=== PATIENT | female | born 1980 | race Caucasian/White ===

== ENCOUNTER 2020-12-03 01:11 | Day surgery (SDC) | payer BC, SELFPAY ==
[2020-11-21 13:57] VITALS: BMI 30.4
--- NOTE | 2020-12-03 08:13 | WPDANESEPPF ---
Anes - Initial Pre Proc Eval Procedure: Operation Date: 12/03/20 11:00 Proposed Procedures p Esophagogastroduodenoscopy & Colonoscopy - Mohsen Overton MD Date/Time: 12/03/20 08:13 Surgeon: Mohsen Overton MD Pre Op Diagnosis: nausea, vomiting, diarrhea Patient Data Age: 40 Gender: F Height: 1.63 m Weight: 80.29 kg Allergies Allergy/AdvReac Type Severity Reaction Status Date / Time No Known Allergies Allergy Verified 12/03/20 10:02 Home Medications Medication Instructions Recorded Confirmed Type aripiprazole 10 mg tablet 10 mg PO DAILY 09/11/20 11/21/20 History lamotrigine 25 mg tablet 25 mg PO DAILY tablet 09/11/20 11/21/20 History ondansetron 4 mg disintegrating 4 mg PO Q8H PRN #30 tablet 09/11/20 11/21/20 Rx tablet trazodone 50 mg tablet 50 mg PO QHS PRN 09/11/20 11/21/20 History calcium carbonate [Tums] 200 mg PO PRN 11/21/20 11/21/20 History Patient hx anesthesia problems: none Family hx anesthesia problems: none PMFSH Past Medical History Medical History Anxiety Anxiety and depression follows with psych Depression History of cervical fracture (~04/18/14) Surgical History Surgical History History of unilateral fallopian tube excision (~2008) Hx of cholecystectomy (~2005) Family History Family History Mother Family history of alcoholism Depression Social History Social History Smoking status: Former smoker Additional smoking assessment comments: quit 2 years Alcohol intake: current Drinks per week: 3 Substance use type: former substance user and methamphetamine Living arrangements: with family Spiritual care concerns: No Anes - Eval Final PreProcedure Day of Procedure 12/03/20 08:13 Patient weight: obese Heart: regular rate and rhythm Lungs: clear to auscultation and normal air movement Airway: Mallampati scale class II Neurological: alert and oriented Last oral intake: >/= 8 hours ASA classification: II Emergent: no Anesthetic plan: proceed Anesthesia type and monitoring: general GIVS and standard monitoring Informed Consent: The patient's anesthetic plan and its attendant risks and benefits were discussed with the patient/family/POA. Questions were solicited and answers provided to the satisfaction of the patient/family/POA.
[2020-12-03 10:04] VITALS: BP 119/93; PULSE 88; RESP 18; TEMP 36.2; O2SAT 99; BMI 28.9
[2020-12-03] MEDS: LACTATED RINGERS 1,000 ML 150 ML IV CONT (10:26)
--- NOTE | 2020-12-03 10:46 | PM.HPGS ---
History of Present Illness History of Present Illness Consent: Risks, benefits, and alternatives have been discussed and questions answered. Patient agrees to proceed with procedure. Chief complaint: nausea, vomiting, diarrhea Narrative: Ramya Valdes is a 40 year old female who has been having diarrhea since July of this year. It seemed to begin acutely accompanied by abdominal pain and vomiting. There is a family history of Crohn's disease and serology revealed an elevation of an antibody suggesting Crohn's disease. Review of Systems Review of Systems: All systems reviewed & are unremarkable except as noted in HPI and below PMFSH Past Medical History Medical History Anxiety Anxiety and depression follows with psych Depression History of cervical fracture (~04/18/14) Surgical History Surgical History History of unilateral fallopian tube excision (~2008) Hx of cholecystectomy (~2005) Family History Family History Mother Family history of alcoholism Depression Social History Social History Smoking status: Former smoker Additional smoking assessment comments: quit 2 years Alcohol intake: current Drinks per week: 3 Substance use type: former substance user and methamphetamine Living arrangements: with family Spiritual care concerns: No Meds Home Medications and Allergies Home Medications Medication Instructions Recorded Confirmed Type aripiprazole 10 mg tablet 10 mg PO DAILY 09/11/20 12/03/20 History lamotrigine 25 mg tablet 25 mg PO DAILY tablet 09/11/20 11/21/20 History ondansetron 4 mg disintegrating 4 mg PO Q8H PRN #30 tablet 09/11/20 11/21/20 Rx tablet trazodone 50 mg tablet 50 mg PO QHS PRN 09/11/20 11/21/20 History calcium carbonate [Tums] 200 mg PO PRN 11/21/20 11/21/20 History Allergies Allergy/AdvReac Type Severity Reaction Status Date / Time No Known Allergies Allergy Verified 12/03/20 10:02 Vital Signs Vital Signs - 24 hr 12/03/20 10:04 Temperature 36.2 C L Pulse Rate 88 Respiratory Rate 18 Blood Pressure 119/93 H Pulse Oximetry 99 Exam Resp: Auscultation: clear to auscultation bilaterally Cardio: Rate: regular rate Rhythm: regular rhythm GI: GI Palp: Yes Soft to palpation and No Tenderness to palpation present (GI) Assessment and Plan Assessment and plan (1) Chronic diarrhea: Code(s): K52.9 - Noninfective gastroenteritis and colitis, unspecified Status: Acute Assessment and Plan: EGD with possible biopsy or dilatation or cautery.Colonoscopy with possible biopsy or polypectomy or cautery or injection of substances.
[2020-12-03 11:28] VITALS: BP 114/83; PULSE 81; RESP 18; O2SAT 99
[2020-12-03 11:38] VITALS: BP 106/79; PULSE 78; RESP 18; O2SAT 99
[2020-12-03 11:48] VITALS: BP 121/89; PULSE 78; RESP 18; O2SAT 99
== END 2020-12-03 12:00 | disposition home or self-care (01) ==
PROVIDERS: PCP Nurse Practitioner Family; Visit Provider Internal Medicine Gastroenterology
PROC: 0DJ08ZZ Inspection of Upper Intestinal Tract, Via Natural or Artificial Opening Endoscopic (ICD-10-PCS; CPT 43235; principal; 2020-12-03 11:00)
DX: Z12.11 Encounter for screening for malignant neoplasm of colon (principal); K62.89 Other specified diseases of anus and rectum; K57.30 Diverticulosis of large intestine without perforation or abscess without bleeding; K59.1 Functional diarrhea; K21.00 Gastro-esophageal reflux disease with esophagitis, without bleeding; R11.2 Nausea with vomiting, unspecified; F41.8 Other specified anxiety disorders; Z87.891 Personal history of nicotine dependence; E66.9 Obesity, unspecified; Z68.28 Body mass index [BMI] 28.0-28.9, adult
CPT/HCPCS: 45380; 43239; 87081; 88305; J2704; J7120

== ENCOUNTER → 2021-03-12 07:58 | Outpatient (CLI) | payer BC, SELFPAY ==
[2021-03-12 20:27] LABS: SARS-CoV-2 RNA PCR Negative
== END ==
PROVIDERS: PCP Nurse Practitioner Family; Visit Provider Nurse Practitioner
DX: R68.89 Other general symptoms and signs (principal); Z20.822 Contact with and (suspected) exposure to COVID-19
CPT/HCPCS: C9803; U0003; U0005

== ENCOUNTER 2022-03-15 06:11 | Emergency (ER) | payer BC, SELFPAY ==
[2022-03-15] VITALS (24 sets, daily range): BP systolic 104–131; BP diastolic 62–88; PULSE 99; RESP 18; TEMP 37.2; O2SAT 94–100
[2022-03-15 07:24] LABS: Influenza A QL RT-PCR Positive (Negative); Influenza B QL RT-PCR Negative (Negative); SARS-CoV-2 RNA PCR Negative
--- NOTE | 2022-03-15 07:42 | ED.URI ---
HPI - URI/Sore Throat General Chief Complaint: Upper Respiratory Infection Stated Complaint: Cough, headache, fever, body aches Time Seen by Provider: 03/15/22 06:23 Source: patient and family Mode of arrival: ambulatory Limitations: no limitations History of Present Illness HPI Narrative: This is 41 year old female who presents for evaluation of URI symptoms. at bedside assisting with history. He states patient's symptoms started yesterday with headache, congestion, cough, fever and body aches. PAtient agrees with onset time and symptoms. SHe reports her headache is located mostly in bilateral temples and she describes her headache as throbbing. She denies associated nausea, vomiting, blurred vision. She denies chest pain, abdominal pain or diarrhea. She has been taking sudafed, ibuprofen and tylenol. She last took medication around 4 am. She states her headache has improved to 5/10 currently since taking the medication. states his kids were ill this past week but they were negative for strep and flu. Related Data Home Medications Medication Instructions Recorded Confirmed trazodone 50 mg tablet 50 mg PO QHS PRN Insomnia 09/11/20 08/16/21 calcium carbonate 200 mg calcium 200 mg PO PRN 11/21/20 08/16/21 (500 mg) chewable tablet (Tums) Allergies Allergy/AdvReac Type Severity Reaction Status Date / Time No Known Allergies Allergy Verified 01/24/22 13:36 Review of Systems Review of Systems: All systems reviewed & are unremarkable except as noted in HPI and below Constitutional: Constitutional: Reports chills, Reports fatigue and Reports fever(s) Eyes: Eyes: Denies change in vision and Denies photophobia ENT: Reports nasal congestion and Denies sore throat Cardiovascular: Cardiovascular: Denies chest pain and Denies radiating jaw, neck or arm pain Respiratory: Respiratory: Denies chest congestion, Reports cough and Denies dyspnea Gastrointestinal: Gastrointestinal: Denies abdominal pain, Denies diarrhea, Denies nausea and Denies vomiting Neurologic: Denies syncope, Reports headache(s), Denies focal weakness and Denies numbness PMFSH Past Medical History Medical History Anxiety Anxiety and depression follows with psych Depression Family history of breast cancer mother's sister History of cervical fracture (~04/18/14) Tobacco use Surgical History Surgical History History of unilateral fallopian tube excision (~2008) Hx of cholecystectomy (~2005) Family History Family History Mother Family history of alcoholism Depression Social History Social History Smoking status: Current every day smoker Additional smoking assessment comments: quit 2 years Alcohol intake: current Drinks per week: 3 Substance use type: former substance user and methamphetamine Spiritual care concerns: No Exam Const: General: no acute distress, alert and ill appearing Nutritional Appearance: well nourished Orientation/consciousness: patient oriented x3 HENMT: Head: normal to inspection Ears: external ears normal and TM's normal bilaterally Face and sinus: normal facial exam Mouth: Yes Normal oral and palatal mucosa present Throat: posterior oropharynx normal and uvula midline Eyes: Pupils: Equal, round and reactive pupils present EOM: EOMs intact bilaterally Neck: Neck: normal visual inspection and no lymphadenopathy Chest: Chest palpation & inspection: normal inspection of the chest Resp: Effort & Inspection: normal respiratory effort Auscultation: clear to auscultation bilaterally Cardio: Rate: regular rate Rhythm: regular rhythm Heart sounds: no murmurs GI: GI Palp: Yes Soft to palpation, Yes Tenderness to palpation present (GI) and No Guarding due to palpation present (GI) Auscultation: normal bow
[2022-03-15] MEDS: LACTATED RINGERS 1,000 ML 999 ML IV CONT (07:56)
[2022-03-15] MEDS: OSELTAMIVIR PHOSPHATE 75 MG CAPSULE PO (07:57)
[2022-03-15 08:01] LABS: Appearance Urine Clear (Clear); Bilirubin Urine Negative (Negative); Blood Urine Trace-lysed (Negative); Color Urine Yellow (Yellow); Glucose Urine UA Negative (Negative); Ketones Urine Trace mg/dL (Negative); Leukocyte Esterase Ur Negative LEU/UL (Negative); Nitrate Urine Negative (Negative); Protein Urine Negative (Negative); Specific Grav Ur 1.015 (1.001-1.035); Urobilinogen Urine 0.2 mg/dL (<2.0); pH Urine 5.5 (5.0-9.0)
[2022-03-15 08:08] LABS: Mucus Urine Rare /lpf; RBC Urine 0-2 /hpf (0-2); Squamous Epithelial Cell Urine Rare /hpf (Few); WBC Urine 0-3 /hpf
[2022-03-15 08:21] LABS: Add Urine Microscopic? YES
== END 2022-03-15 09:02 | disposition home or self-care (01) ==
PROVIDERS: Emergency Medicine; Emergency Provider General Practice; PCP Nurse Practitioner Family
DX: J10.1 Influenza due to other identified influenza virus with other respiratory manifestations (principal); F17.210 Nicotine dependence, cigarettes, uncomplicated; Z20.822 Contact with and (suspected) exposure to COVID-19
CPT/HCPCS: 81001; 81025; 87636; 96360; 99283; A9270; J7120

== ENCOUNTER 2022-03-17 17:51 | Emergency (ER) | payer BC, SELFPAY ==
--- NOTE | ~2022-03-17 | XR_ITS ---
EXAMINATION: XR chest 1V portable DATE: 03/18/2022 01:27 INDICATION: Influenza. TECHNIQUE: A single frontal view of the chest was obtained. COMPARISON: None. FINDINGS: The chest demonstrates clear lungs without pneumonia, pleural effusion, or pneumothorax. Th e heart size is normal. IMPRESSION: 1. No acute cardiopulmonary disease. Reviewed, dictated and finalized at location A. [employer]
[2022-03-17 18:06] VITALS: BP 165/94; PULSE 100; RESP 20; TEMP 38.2; O2SAT 100
--- NOTE | 2022-03-18 01:16 | ED.GENADULT ---
HPI - General Adult General Chief complaint: Upper Respiratory Infection Stated complaint: INFLUENZA A FEELS LIKE SHE CAN'T BREATHE Time Seen by Provider: 03/18/22 00:57 History of Present Illness HPI narrative: This is a 41-year-old female presenting to ED with flu-like symptoms. On Thursday morning she was diagnosed with flu A. Since then her symptoms have included cough congestion, nausea vomiting and diarrhea. She felt like she now has more chest congestion. She was seen in urgent care earlier who recommended she come to the ER. Patient has been taking Tamiflu, Motrin, Tylenol, Lomotil without relief. The goal of today's visit to feel better. Related Data Home Medications Medication Instructions Recorded Confirmed trazodone 50 mg tablet 50 mg PO QHS PRN Insomnia 09/11/20 08/16/21 calcium carbonate 200 mg calcium 200 mg PO PRN 11/21/20 08/16/21 (500 mg) chewable tablet (Tums) Allergies Allergy/AdvReac Type Severity Reaction Status Date / Time No Known Allergies Allergy Verified 01/24/22 13:36 Review of Systems Review of Systems: CONSTITUTIONAL: Denies night sweats. EYES: No eye pain ENT: Admitsrhinorrhea CARDIOVASCULAR: Denies palpitations RESPIRATORY: Denies hemoptysis GASTROINTESTINAL: Denies hematemesis GENITOURINARY: Denies hematuria. SKIN: Denies rash MUSCULOSKELETAL: Denies myalgia. NEUROLOGIC: Denies weakness. PSYCHIATRIC: Denies delusions PMFSH Past Medical History Medical History Anxiety Anxiety and depression follows with psych Depression Family history of breast cancer mother's sister History of cervical fracture (~04/18/14) Tobacco use Surgical History Surgical History History of unilateral fallopian tube excision (~2008) Hx of cholecystectomy (~2005) Family History Family History Mother Family history of alcoholism Depression Social History Social History Smoking status: Current every day smoker Additional smoking assessment comments: quit 2 years Alcohol intake: current Drinks per week: 3 Substance use type: former substance user and methamphetamine Spiritual care concerns: No Course Vital Signs Vital signs: Vital Signs Temperature 100.8 F H 03/17/22 18:06 Pulse Rate 100 03/17/22 18:06 Respiratory Rate 20 03/17/22 18:06 Blood Pressure 165/94 H 03/17/22 18:06 Pulse Oximetry 100 03/17/22 18:06 Oxygen Delivery Room Air 03/17/22 18:06 Temperature 100.8 F H 03/17/22 18:06 Pulse Rate 70 03/18/22 02:00 Respiratory Rate 20 03/18/22 02:00 Blood Pressure 128/97 H 03/18/22 02:00 Pulse Oximetry 100 03/18/22 02:14 Oxygen Delivery Room Air 03/18/22 02:14 Medical Decision Making MDM Narrative Medical decision making narrative: this is a 41-year-old female presenting with flu-like symptoms. The patient is already on Tamiflu and taking treatment for symptoms. However she still feels terrible. Patient has been waiting in our waiting room for 8 hours. She will be given symptomatic treatment. Chest x-ray will be obtained. Patient will be given 2 L of IV fluids. Chest x-ray was negative for any acute cardiopulmonary process. Upon re-evaluation the patient's vital signs have improved. She is feeling better. She will be discharged home with return precautions if she develops worsening shortness of breath or chest pain she should return to the emergency department for evaluation. Vital Signs Vital Signs: Vital Signs Temperature 100.8 F H 03/17/22 18:06 Pulse Rate 100 03/17/22 18:06 Respiratory Rate 20 03/17/22 18:06 Blood Pressure 165/94 H 03/17/22 18:06 Pulse Oximetry 100 03/17/22 18:06 Oxygen Delivery Room Air 03/17/22 18:06 Temperature 100.8 F H 03/17/22 18:06 Pulse Rate 70 03/18/22 02:00 Respiratory Rat
[2022-03-18 01:40] LABS: Influenza A QL RT-PCR Positive (Negative); Influenza B QL RT-PCR Negative (Negative); SARS-CoV-2 RNA PCR Negative
[2022-03-18 01:44] VITALS: O2SAT 98
[2022-03-18 01:46] VITALS: O2SAT 97
[2022-03-18] MEDS: ONDANSETRON INJ 4 MG/2 ML VIAL IV PUSH (01:57)
[2022-03-18] MEDS: IBUPROFEN 400 MG TABLET 800 MG PO (01:57)
[2022-03-18] MEDS: ACETAMINOPHEN 500 MG TABLET 1000 MG PO (01:57)
[2022-03-18] MEDS: SODIUM CHLORIDE 0.9% IV 2,000 ML 999 ML IV CONT (01:58)
[2022-03-18 02:00] VITALS: BP 128/97; PULSE 70; RESP 20
[2022-03-18] MEDS: guaiFENesin/DEXTROMETHORPHAN 10 ML UDC PO (02:07)
[2022-03-18] MEDS: BENZOCAINE/MENTHOL (*BKC) 18 EA LOZENGE 1 LOZENGE PO (02:07)
[2022-03-18 02:14] VITALS: O2SAT 100
[2022-03-18 03:39] VITALS: TEMP 37.4
== END 2022-03-18 03:50 | disposition home or self-care (01) ==
PROVIDERS: Emergency Provider Emergency Medicine; PCP Nurse Practitioner Family
DX: J10.1 Influenza due to other identified influenza virus with other respiratory manifestations (principal); F17.210 Nicotine dependence, cigarettes, uncomplicated; Z20.822 Contact with and (suspected) exposure to COVID-19
CPT/HCPCS: 71045; 87636; 96361; 96374; 99284; A9270; J2405; J7030

== ENCOUNTER 2022-09-11 08:42 | Outpatient (CLI) | payer BC, SELFPAY ==
--- NOTE | 2022-09-11 11:00 | NEURO_ITS ---
Impression: Patient reports a history of bilateral hand numbness. # Mild right Carpal Tunnel Syndrome. # Normal needle/EMG exam. # Clinical correlation recommended. Nerve Conduction Studies Anti Sensory Summary Table Stim Site NR Peak (ms) P-T Amp (?V) Site1 Site2 Delta-P (ms) Dist (cm) Maik (m/s) Left Median Anti Sensory (2-3nd Digit) Wrist 3.3 62.6 Wrist 2-3nd Digit 3.3 14.0 42 Wrist 3.5 69.0 Wrist 2-3nd Digit 3.3 14.0 42 Right Median Anti Sensory (2-3nd Digit) Wrist 4.1 21.8 Wrist 2-3nd Digit 4.1 14.0 34 Wrist 4.2 20.8 Wrist 2-3nd Digit 4.1 14.0 34 Left Radial Anti Sensory (Base 1st Digit) Wrist 1.9 22.9 Wrist Base 1st Digit 1.9 0.0 Right Radial Anti Sensory (Base 1st Digit) Wrist 1.9 33.2 Wrist Base 1st Digit 1.9 0.0 Left Ulnar Anti Sensory (5th Digit) Wrist 2.6 77.4 Wrist 5th Digit 2.6 14.0 54 Right Ulnar Anti Sensory (5th Digit) Wrist 2.5 57.7 Wrist 5th Digit 2.5 14.0 56 Motor Summary Table Stim Site NR Onset (ms) O-P Amp (mV) Site1 Site2 Delta-0 (ms) Dist (cm) Maik (m/s) Left Median Motor (Abd Poll Brev) Wrist 3.4 7.8 Elbow Wrist 3.9 22.0 56 Elbow 7.3 6.7 Right Median Motor (Abd Poll Brev) Wrist 4.1 10.1 Elbow Wrist 3.9 23.0 59 Elbow 8.0 7.1 Left Ulnar Motor (Abd Dig Minimi) Wrist 2.3 8.5 A Elbow Wrist 5.1 29.0 57 A Elbow 7.4 7.3 B Elbow Wrist 3.2 19.0 59 B Elbow 5.5 7.5 Right Ulnar Motor (Abd Dig Minimi) Wrist 2.2 7.6 A Elbow Wrist 4.8 28.0 58 A Elbow 7.0 6.3 B Elbow Wrist 3.4 19.0 56 B Elbow 5.6 6.5 F Wave Studies NR F-Lat (ms) L-R F-Lat (ms) Left Median (Mrkrs) (Abd Poll Brev) 27.62 1.29 Right Median (Mrkrs) (Abd Poll Brev) 28.91 1.29 Left Ulnar (Mrkrs) (Abd Dig Min) 27.42 0.15 Right Ulnar (Mrkrs) (Abd Dig Min) 27.26 0.15 EMG Side Muscle Nerve Root Ins Act Fibs Amp Dur Recrt Comment Right 1stDorInt Ulnar C8-T1 Nml Nml Nml Nml Nml Right Ext Indicis Radial (Post Int) C7-8 Nml Nml Nml Nml Nml Right Ext Digitorum Radial (Post Int) C7-8 Nml Nml Nml Nml Nml Right BrachioRad Radial C5-6 Nml Nml Nml Nml Nml Right PronatorTeres Median C6-7 Nml Nml Nml Nml Nml Right Abd Poll Brev Median C8-T1 Nml Nml Nml Nml Nml Left 1stDorInt Ulnar C8-T1 Nml Nml Nml Nml Nml Left Ext Indicis Radial (Post Int) C7-8 Nml Nml Nml Nml Nml Left Ext Digitorum Radial (Post Int) C7-8 Nml Nml Nml Nml Nml Left BrachioRad Radial C5-6 Nml Nml Nml Nml Nml Left PronatorTeres Median C6-7 Nml Nml Nml Nml Nml Left Abd Poll Brev Median C8-T1 Nml Nml Nml Nml Nml MTDD
== END 2022-09-11 08:43 | disposition home or self-care (01) ==
LOC: ANHNEURO 08:44
PROVIDERS: PCP Family Medicine; Visit Provider Family Medicine
DX: R20.0 Anesthesia of skin (principal); G56.01 Carpal tunnel syndrome, right upper limb
CPT/HCPCS: 95886; 95911

== ENCOUNTER 2022-11-04 12:53 | Outpatient (CLI) | payer BC, SELFPAY ==
--- NOTE | 2022-11-04 17:02 | WPDSIXMINUTE ---
Six Minute Walk Procedure Procedure Performed Pulmonary Stress Test (6 min walk) Six Minute Walk Six Minute Walk: This is a 6 minute walk test. The test was performed and interpreted in accordance with the 2014 ERS/ATS task force guidelines. Findings: The patient's resting room air oxygen saturation measured by pulse oximetry was 99% and heart rate was 84 bpm. Patient ambulated for 396 meters and oxygen saturation remained 94 to 98%. Heart rate at the end of the study was 93 bpm. The patient did not qualify for supplemental oxygen at rest or with ambulation. There are no prior studies for comparison.
--- NOTE | 2022-11-04 17:03 | WPDPFTINT ---
PFT Procedure Performed PFT Procedure Performed Spirometry with Pre/Post Bronchodilator Plethysmography (Lung Vol) Diffusing Cap (DLCO) Flow Vol Loop PFT Interpretation This is a pulmonary function test with pre and post-bronchodilator spirometry, plethysmography and diffusing capacity. The test was performed and results interpreted in accordance with the 2019 and 2005 ATS/ERS Task Force guidelines respectively using the Global Lung Function Initiative-2012 reference equations. Patient demonstrated good effort and cooperation. Reproducibility criteria were met. The quality of the pre bronchodilator spirometry maneuver was Grade B and post bronchodilator spirometry maneuver was Grade A. Findings: Spirometry: The contour the inspiratory and expiratory flow tracing are normal. The pre bronchodilator FVC is 4.18 L, 113% predicted. The pre bronchodilator FEV1 is 3.13 L, 104% predicted. The pre bronchodilator FEV1: FVC ratio 75%. The post bronchodilator FVC is 4.03 L, representing a 4% decrease. The post bronchodilator FEV1 is 3.25 L, representing a 4% increase. The post bronchodilator FEV1: FVC ratio is 81%. Plethysmography: The total lung capacity is 5.58 L, 110% predicted. The functional residual capacity is 2.59 L, 92% predicted. The residual volume is 1.39 L, 86% predicted. Diffusing capacity: The diffusing capacity unadjusted for hemoglobin and carboxyhemoglobin is 17.3, 73% predicted. The diffusing capacity adjusted for alveolar volume is 3.41, 72% predicted. Impression: The spirometry is normal without evidence of an obstructive abnormality. There is no significant improvement after inhaling a single dose of albuterol. The lung volumes are normal. The diffusing capacity is normal. There are no prior studies for comparison
== END 2022-11-04 12:54 | disposition home or self-care (01) ==
LOC: ANHPFT 12:56
PROVIDERS: PCP Family Medicine; Visit Provider Nurse Practitioner Family
DX: R06.09 Other forms of dyspnea (principal)
CPT/HCPCS: 94060; 94618; 94726; 94729

== ENCOUNTER 2022-11-12 10:19 | Outpatient (CLI) | payer BC, SELFPAY | END 2022-11-12 10:20 | disposition home or self-care (01) | LOC: ANHLAB 10:21 | PROVIDERS: PCP Family Medicine; Visit Provider Physician Assistant | DX: J30.9 Allergic rhinitis, unspecified (principal) | CPT/HCPCS: 36415; 82785; 86003 ==

== ENCOUNTER → 2022-11-18 13:24 | Outpatient (CLI) | payer BC, SELFPAY ==
--- NOTE | ~2022-11-18 | MM_ITS ---
EXAMINATION: MM screening [facility] w den[facility] HISTORY: Screening TECHNIQUE: Craniocaudal and mediolateral oblique 3-D tomosynthesis images were obtained and synthetic 2-D images were generated. CAD analysis was submitted and interpreted. COMPARISON: No prior mammogram is available for comparison at this institution. BREAST PARENCHYMAL COMPOSITION: There are scattered areas of fibroglandular density. FINDINGS: There is no evidence of suspicious mass, calcification, or architectural distortion to sugg est malignancy in either breast. There has been no suspicious interval change. IMPRESSION: 1. No mammographic evidence of malignancy. 2. Recommend routine screening mammography in one year. BI-RADS Category 1: Negative Reviewed, dictated and finalized at location A.
== END ==
PROVIDERS: PCP Nurse Practitioner Obstetrics & Gynecology; Visit Provider Nurse Practitioner Obstetrics & Gynecology
DX: Z12.31 Encounter for screening mammogram for malignant neoplasm of breast (principal)
CPT/HCPCS: 77063; 77067

== ENCOUNTER 2022-11-18 14:14 | Outpatient (CLI) | payer BC, SELFPAY ==
--- NOTE | ~2022-11-18 | XR_ITS ---
EXAMINATION: XR chest 2V Exam Date/Time: 11/18/2022 14:20 CDT HISTORY: Pre-surgery, other forms of dyspnea Comparison: 03/18/2022. RESULT: Lines, tubes, and devices: Cholecystectomy clips. Lungs and pleura: Clear. Cardiomediastinal silhouette: Stable. Other: No acute osseous or upper abdominal finding. IMPRESSION: No acute cardiopulmonary process. Reviewed, dictated and finalized at location K.
== END 2022-11-18 14:15 | disposition home or self-care (01) ==
PROVIDERS: PCP Family Medicine; Visit Provider Physician Assistant
DX: R06.09 Other forms of dyspnea (principal); R05.9 Cough, unspecified
CPT/HCPCS: 71046

== ENCOUNTER 2022-12-01 15:06 | Outpatient (CLI) | payer BC, SELFPAY | END 2022-12-01 15:07 | disposition home or self-care (01) | LOC: ANHLAB 15:08 | PROVIDERS: PCP Family Medicine; Visit Provider Obstetrics & Gynecology | DX: D25.9 Leiomyoma of uterus, unspecified (principal); Z01.818 Encounter for other preprocedural examination | CPT/HCPCS: 36415; 86850; 86900; 86901 ==

== ENCOUNTER 2022-12-03 01:37 | Day surgery (SDC) | payer BC, SELFPAY ==
[2022-11-28 15:15] VITALS: BMI 28.6
--- NOTE | 2022-11-28 15:23 | PC.NURSE ---
Report to the Outpatient Waiting Room, entrance under the green pavilion located off [facility], at time 9:30 on date 12/03/22. Planned Procedure Time: 11:30. Time changes happen often and if your time is changed the preop area will call you the afternoon before. - You and your visitor will be asked to self-screen and do not enter if you have any COVID symptoms. - A mask is optional within the hospital at this time. Patients may have clear liquids (water, carbonated beverages, clear teas, apple juice) until 3 hours prior to surgery (8:30) with a maximum of 20 ounces. - No food from midnight until time of surgery Take the following medications with a SIP of water the morning of surgery: INHALER IF NEEDED, WELLBUTRIN, PREDNISONE, SERTRALINE DO NOT STOP ANY OF YOUR OTHER PRESCRIPTION MEDICATIONS PRIOR TO SURGERY ?EXCEPT THE FOLLOWING Medications to discontinue per physician: VITAMINS/SUPPLEMENTS Date to take last dose: 11/29/22 Please no make-up, nail slovak, hairspray, perfume, deodorant, or body powder the day of surgery. No jewelry (including any body piercings) or valuables the day of surgery, leave them at home. Please take a shower or bath the night before, or the morning of, surgery with an antibacterial soap. Wear comfortable, loose fitting clothing. - Jewelry must be removed prior to entering the operating room. Rings and piercings that are not removed may be cut off. - The hospital will not accept responsibility for valuables. - Please leave all valuables, including medications, at home the day of surgery. If you are going home after surgery, a licensed train driver must drive you home. - NO public transportation without another adult if you receive anesthesia. - We recommend that an adult stay with you for 24 hours following discharge. - We also recommend that you do not drive, make important decision, drink alcoholic beverages, or take any drugs that were not prescribed by your health care provider for at least 24 hours after your discharge time. Follow any additional instructions given to you from your surgeon. If you or anyone in your household have experienced Covid symptoms in the past week, please notify your surgeon or the nurse liaison at the phone number below for possible testing. Telephone instructions given to PT - CHAU PRITCHETT and asked if any additional questions and then verbalized understanding. Patient advised to call surgeon office or pre surgery nurse liaison [phone] if any additional questions.
[2022-12-03] VITALS (10 sets, daily range): BP systolic 105–127; BP diastolic 58–99; PULSE 77–106; RESP 12–20; TEMP 36.3–36.9; O2SAT 94–100
[2022-12-03] MEDS: ACETAMINOPHEN 500 MG TABLET 1000 MG PO (09:24)
--- NOTE | 2022-12-03 09:28 | WPDANESEPPF ---
Anes - Initial Pre Proc Eval Procedure: Operation Date: 12/03/22 11:30 Proposed Procedures p Total Laparoscopic Hysterectomy with Bilateral Salpingectomy - Carlos Barron MD Date/Time: 12/03/22 09:28 Surgeon: Carlos Barron MD Pre Op Diagnosis: Uterine Leiomyoma Patient Data Age: 42 Gender: F Height: 1.63 m Weight: 75.75 kg Allergies Allergy/AdvReac Type Severity Reaction Status Date / Time No Known Allergies Allergy Verified 12/03/22 09:19 Home Medications Medication Instructions Recorded Confirmed Type trazodone 50 mg tablet 50 mg PO QHS PRN Insomnia 09/11/20 12/03/22 History calcium carbonate 200 mg calcium 200 mg PO PRN 11/21/20 11/28/22 History (500 mg) chewable tablet (Tums) sertraline 50 mg tablet 50 mg PO DAILY #1 tablet 08/16/21 12/03/22 Rx omeprazole 40 mg capsule,delayed 40 mg PO DAILY #90 caps 07/02/22 12/03/22 Rx release albuterol sulfate 90 mcg/actuation 2 inh inhalation Q4H PRN shortness 07/24/22 12/03/22 History aerosol inhaler of breath or wheezing cholecalciferol (vitamin D3) 1,250 1,250 mcg PO WEEKLY #12 tabs 08/25/22 12/03/22 Rx mcg (50,000 unit) tablet cyanocobalamin (vitamin B-12) 1,000 mcg sublingual DAILY #90 tabs 08/25/22 12/03/22 Rx 1,000 mcg sublingual tablet bupropion HCl 300 mg 24 hr tablet, 300 mg PO QAM 10/03/22 12/03/22 History extended release (Wellbutrin XL) fluticasone propionate 50 1 spray intranasal BID #16 grams 11/12/22 12/03/22 Rx mcg/actuation nasal spray,suspension (Flonase Allergy Relief) loratadine 10 mg tablet (Claritin) 10 mg PO DAILY #30 tabs 11/12/22 12/03/22 Rx Patient hx anesthesia problems: none Family hx anesthesia problems: none Results Review: All pre-operative results and documents have been reviewed as part of the pre-operative evaluation. [facility] Past Medical History Medical History Anxiety and depression follows with psych Family history of breast cancer mother's sister GERD without esophagitis History of cervical fracture (~04/18/14) Tobacco use Surgical History Surgical History History of unilateral fallopian tube excision (~2008) Hx of cholecystectomy (~2005) Family History Family History Mother Family history of alcoholism Depression Social History Social History Social History: Patient quit smoking 3 weeks ago. Smoking packs per day: 0.25 Smoking cigarettes per day: 5.0 Years smoked: 20 Smoking pack-years: 5.00 Smoking status: Former smoker Tobacco type: cigarettes Second hand tobacco smoke exposure: No Smoking end date: 08/04/22 Alcohol intake: current Drinks per week: 3 Substance use: former Substance use type: marijuana Lack of Transportation: No Lack of Food: Never True Current Housing: I Have Housing Concerned About Future Housing: No Difficulty Paying Gas/Electric Bills: No Difficulty Paying for Meds: No Currently Unemployed: No Education: Associate Degree Difficulty w/ Childcare or Family Care: No Living arrangements: with family Occupation/Education: occupation Gender identity (if verbalized by the patient): Female Sexual Orientation (if Verbalized by the Patient): Straight or Heterosexual Spiritual care concerns: No Agree to blood products: Yes Anes - Eval Final PreProcedure Day of Procedure 12/03/22 09:28 Patient weight: overweight Heart: regular rate and rhythm Lungs: clear to auscultation Airway: Mallampati scale class 1 Neurological: alert and oriented Last oral intake: >/= 8 hours ASA classification: II Emergent: no Anesthetic plan: proceed Anesthesia type and monitoring: general ETT and standard monitoring Results Review: All pre-operative results and documents have been reviewed as part of the pre-operative evaluation. Infor
[2022-12-03] MEDS: LACTATED RINGERS 1,000 ML 30 ML IV CONT ×3 (09:45→13:34)
[2022-12-03] MEDS: KETOROLAC 15 MG/ML VIAL (*BKC) IV PUSH (09:48)
--- NOTE | 2022-12-03 10:16 | SUR.PREOP ---
1000-report given to Denver Pagan RN.
[2022-12-03] MEDS: ceFAZolin 2 GM/D5W 50 ML 2 GM/50 ML BAG IVPB (11:16)
[2022-12-03] MEDS: ceFAZolin SODIUM 1 GM VIAL (11:54)
--- NOTE | 2022-12-03 12:36 | W.PM.PROC2 ---
Procedure Note - Detailed Date of Procedure 12/03/22 Pre-op Diagnosis Uterine Leiomyoma Post-op Diagnosis Same Procedure Performed Total laparoscopic hysterectomy. Surgeon Carlos Barron MD Anesthesia General Indications Menorrhagia Findings Mildly enlarged uterus, normal-appearing ovaries. Description of Procedure This patient was taken to the operating room. She was prepped and draped in the dorsal lithotomy position after induction of general anesthesia. The uterine manipulator and J Luis cup were placed. This was done with a speculum and tenaculum. The speculum was placed. The cervix was grasped with a tenaculum. The stay sutures were placed at 3 and 9:00 a.m.. The stay sutures of 0 Vicryl were brought through the appropriately sized J Luis cup. The tip of the ARAMIS manipulator was placed in the intrauterine cavity. The cup was slid into place around the cervix and into the fornices. It was locked into place. The sutures were then wrapped around the handle and tied under tension. A 5 mm skin incision was made in the left upper quadrant the abdomen. A 5 mm trocar was inserted into the intrauterine cavity under direct visualization of the scope. Pneumoperitoneum was achieved. A left lower quadrant 11 mm incision was made with scalpel. An 11 mm trocar was inserted into the anterior abdominal cavity under direct visualization the scope. A 5 mm infraumbilical incision was made with a scalpel and a 5 mm trocar was inserted the intra-abdominal cavity under direct visualization of the scope. Bilateral ureteral lysis was performed. This was done from the pelvic brim down to the uterine artery. This was done with careful dissection using sharp and blunt dissection. In a stepwise fashion along the lateral aspects of the uterus the suspensory ligament of the ovary, round ligament and broad ligaments were cauterized transected down to the level of the uterine arteries. A bladder flap was created in the bladder was moved distally to the end of the cervix and over the J Luis cup. The bilateral uterine arteries were cauterized and transected. Colpotomy was then performed. In a circumferential fashion the vagina was transected using unipolar cautery. The incision was made down on the J Luis cup. The uterus and cervix were taken out through the vagina. A pneumo occluder was placed in the vagina. The vaginal cuff was closed with a 0 V lock suture in a running fashion. The pelvis was irrigated with copious amounts antibiotic irrigation. The ureters were again examined and found to be intact and flowing freely under the uterine arteries into the bladder. The bladder was intact. It was examined directly. The vagina was irrigated with Betadine solution after removal of the Pneumo occluder. The patient was taken to recovery room. She was stable condition. Sponge lap and needle counts were correct x2. Drains Yes Packing No Pathology Yes Complications No immediate complications Condition Stable Disposition Floor
[2022-12-03] MEDS: fentaNYL CITRATE INJ (*CRX) 100 MCG/2 ML VIAL 25 MCG IV PUSH ×4 (13:18→13:41)
[2022-12-03] MEDS: KETOROLAC 30 MG/ML VIAL (*BKC) IV PUSH (14:45)
[2022-12-03] MEDS: DEXTROSE 5%/0.45% SOD CHL 1,000 ML 125 ML IV CONT (14:46)
[2022-12-03] MEDS: HYDROcodone/acetaminophen (*CRX) 5-325 MG TABLET 1 TAB PO (17:20)
[2022-12-03] MEDS: SERTRALINE HCL 50 MG TABLET PO (19:55)
[2022-12-03] MEDS: buPROPion HCL XL (24 HR) 150 MG TABCR 300 MG PO (19:55)
[2022-12-03] MEDS: HYDROcodone/acetaminophen (*CRX) 10-325 MG TABLET 1 TAB PO (19:55)
[2022-12-03] MEDS: IBUPROFEN 600 MG TABLET PO (21:04)
[2022-12-03] MEDS: PANTOPRAZOLE 40 MG TABLET PO (21:05)
[2022-12-04 00:16] VITALS: BP 103/76; PULSE 78; RESP 14; TEMP 36.9; O2SAT 98
[2022-12-04] MEDS: HYDROcodone/acetaminophen (*CRX) 10-325 MG TABLET 1 TAB PO (01:50)
[2022-12-04 03:46] VITALS: BP 110/79; PULSE 83; RESP 16; TEMP 36.8; O2SAT 99
[2022-12-04 05:30] LABS: Basophils Percent Auto 0.2 % (0.2-1.2); Eosinophils Percent Auto 0.1 % (0-4.4); Hematocrit 33.6 % (37.0-47.0); Hemoglobin 11.2 g/dL (12.0-15.0); Immature Granulocyte Absolute 0.04 K/mm3 (0.00-0.031); Immature Granulocyte Percent A 0.4 % (0-0.5); Mean Corpuscular HGB Conc 33.3 g/dl (32-36); Mean Corpuscular Hemoglobin 33.5 pg (26-34); Mean Corpuscular Volume 100.6 fl (80-100); Mean Platelet Volume 8.9 fl (7.4-10.4); Monocytes Absolute Auto 0.7 K/mm3 (0.1-0.6); Monocytes Percent Auto 7.6 % (2.6-8.5); Neutrophils Absolute Auto 7.2 K/mm3 (1.3-6.7); Neutrophils Percent Auto 78.7 % (45.5-73.1); Platelet Count Result 254 k/mm3 (150-375); Red Blood Count 3.34 M/mm3 (4.2-5.4); Red Cell Distribution Width 12.2 % (11.5-14.5); White Blood Count 9.2 K/mm3 (4.5-10.0)
[2022-12-04] MEDS: IBUPROFEN 600 MG TABLET PO (06:39)
--- NOTE | 2022-12-04 08:26 | PM.GYNPNOP ---
WRAPPER COUNTER - A/P Postoperative Procedures: Procedures Operation Date: 12/03/22 11:30 Actual Procedure Side Surgeon p Total Laparoscopic Hysterectomy with Bilateral Salpingectomy Bilateral Carlos Barron MD Postoperative day: 1 Postoperative status: doing well Postoperative plan: see orders Time Spent With Patient Time: Total time spent is greater than 50% in coordination of care (as documented) at patient's floor/unit and/or counseling patient: Time with patient: less than 15 minutes WRAPPER COUNTER- PN:Subj Post-Op Subjective Date/time seen: 12/04/22 08:26 Subjective: patient reports feeling better, patient has no complaints and pain is well controlled Exam Const: General: healthy appearing, comfortable and no acute distress Resp: Auscultation: clear to auscultation bilaterally, no rales, no rhonchi and no wheezes Cardio: Rate: regular rate Heart sounds: no click, no murmurs and no rubs GI: Inspection: non-distended Auscultation: normal bowel sounds Extrem: General: normal to inspection, no pedal edema and no calf tenderness WRAPPER COUNTER - PN: Obj Data Vital Signs Vital Signs: Vital Signs - 24 hr 12/03/22 09:17 12/03/22 12:53 12/03/22 13:05 Temperature 97.3 F L 98.5 F Pulse Rate 77 93 91 Respiratory Rate 20 20 16 Blood Pressure 127/99 H 122/73 105/58 L Pulse Oximetry 100 100 100 Oxygen Delivery Room Air Simple Face Mask Simple Face Mask Oxygen Flow Rate 8 8 12/03/22 13:20 12/03/22 13:35 12/03/22 13:50 Temperature Pulse Rate 89 92 88 Respiratory Rate 14 16 12 Blood Pressure 116/81 105/72 116/80 Pulse Oximetry 94 97 99 Oxygen Delivery Room Air Nasal Cannula Nasal Cannula Oxygen Flow Rate 2 2 12/03/22 13:58 12/03/22 14:15 12/03/22 14:30 Temperature 97.7 F Pulse Rate 88 88 Respiratory Rate 12 18 Blood Pressure 118/80 123/93 H Pulse Oximetry 99 99 Oxygen Delivery Nasal Cannula Room Air Oxygen Flow Rate 2 12/03/22 17:00 12/03/22 20:15 12/04/22 00:16 Temperature 97.8 F 98.4 F 98.4 F Pulse Rate 91 106 H 78 Respiratory Rate 16 18 14 Blood Pressure 125/88 123/92 H 103/76 Pulse Oximetry 95 98 98 Oxygen Delivery Oxygen Flow Rate 12/04/22 03:46 12/04/22 04:54 Temperature 98.3 F Pulse Rate 83 Respiratory Rate 16 Blood Pressure 110/79 Pulse Oximetry 99 Oxygen Delivery Room Air Oxygen Flow Rate Intake/Output Intake/Output: Intake & Output 12/01/22 12/02/22 12/03/22 12/04/22 23:59 23:59 23:59 23:59 Intake Total 1250 Output Total 1650 Balance -400 Meds/Results Medications: Active Medications Generic Name Dose Route Start Last Admin Trade Name Freq PRN Reason Stop Dose Admin Hydrocodone Bitart/Acetaminophen 1 tab 12/03/22 14:01 12/03/22 17:20 Hydrocodone/Acetaminophen (*Crx) 5-325 Mg Tablet PO 1 tab Q3H PRN Administration Pain Rated 5 or Less Hydrocodone Bitart/Acetaminophen 1 tab 12/03/22 14:01 12/04/22 01:50 Hydrocodone/Acetaminophen (*Crx) 10-325 Mg Tablet PO 1 tab Q3H PRN Administration Pain Rated 6 or Greater Albuterol 2 puff 12/03/22 14:01 Albuterol Sulfate (*Sp) Aerosol 1 Puff INHALATION Q4H PRN shortness of breath or wheezing Bupropion HCl 300 mg 12/03/22 21:00 12/03/22 19:55 Bupropion Hcl Xl (24 Hr) 150 Mg Tabcr PO 300 mg Q24H JACKLYN Administration Ibuprofen 600 mg 12/03/22 14:01 12/04/22 06:39 Ibuprofen 600 Mg Tablet PO 600 mg Q6H PRN Administration Cramping Ketorolac Tromethamine 30 mg 12/03/22 14:01 12/03/22 14:45 Ketorolac 30 Mg/Ml Vial (*Bkc) IV PUSH 12/08/22 14:00 30 mg Q6H PRN Administration Pain Rated 4-6 Naloxone HCl 0.1 mg 12/03/22 14:01 Naloxone Hcl 0.4 Mg/Ml Vial IV PUSH Q2M PRN Respiratory rate less than 10 Ondansetron HCl 4 mg 12/03/22 14:01 Ondansetron Inj 4 Mg/2 Ml Vial IV PUSH Q6H PRN Nausea And Vomiting Pantoprazole Sodium 40 mg 12/03/22 21:00 12/04/22 08:26 Pantoprazole 40 Mg Tablet PO
[2022-12-04 08:55] VITALS: BP 128/82; PULSE 85; RESP 16; TEMP 36.9; O2SAT 99
== END 2022-12-04 09:30 | disposition home or self-care (01) ==
LOC: ANHSURGERY 09:07 → ANHOB2 14:02
PROVIDERS: PCP Family Medicine; Visit Provider Obstetrics & Gynecology
PROC: 0UT9FZZ Resection of Uterus, Via Natural or Artificial Opening With Percutaneous Endoscopic Assistance (ICD-10-PCS; CPT 58571; principal; 2022-12-03 11:30)
DX: D25.2 Subserosal leiomyoma of uterus (principal); D25.1 Intramural leiomyoma of uterus; F41.8 Other specified anxiety disorders; K21.9 Gastro-esophageal reflux disease without esophagitis; Z87.891 Personal history of nicotine dependence; Z79.51 Long term (current) use of inhaled steroids
CPT/HCPCS: 58571; 36415; 85025; 88307; 99199; A9270; J0690; J1100; J1170; J1885; J2250; J2405; J2710; J3010; J7030; J7120

== ENCOUNTER 2022-12-16 12:13 | Outpatient (CLI) | payer BC, SELFPAY ==
--- NOTE | 2022-12-16 14:31 | PCRCNOTE ---
PATIENT HAS BEEN EDUCATED AND RECEIVED A PEAK FLOW AND SPACER.
--- NOTE | 2022-12-16 15:28 | WPDMETH ---
Methacholine Procedure Perform Procedure Performed Methacholine Challenge Methacholine Challenge Methacholine Challenge: Methacholine challenge was performed with quadrupling increases of nebulized methacholine according to the 5 step dosimeter protocol recommended by the ATS/ERS 2017 guidelines. Following administration of 464.4 mcg of methacholine at step 5, the measured FEV1 decreased by approximately 69% from the baseline measurement. Post administration of nebulized short-acting bronchodilator, the FEV1 returned back to near baseline level. Impression: Positive methacholine challenge testing. Normal airway hyperresponsiveness.
== END 2022-12-16 12:14 | disposition home or self-care (01) ==
PROVIDERS: PCP Family Medicine; Visit Provider Physician Assistant
DX: J30.9 Allergic rhinitis, unspecified (principal); R05.9 Cough, unspecified; R06.09 Other forms of dyspnea
CPT/HCPCS: 94070; J7674

== ENCOUNTER 2023-02-23 14:53 | Emergency (ER) | payer OTHER, BC, SELFPAY ==
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
--- NOTE | ~2023-02-23 | XR_ITS ---
EXAMINATION: XR hip BI 2V w AP pelvis DATE: 02/23/2023 16:22 INDICATION: Pelvic and hip pain TECHNIQUE: AP view of the pelvis and two views of each hip were obtained. COMPARISON: None. FINDINGS: Bone alignment is normal. There is no fracture. The soft tissues are unremarkable. IMPRESSION: 1. No acute osseous abnormality. Reviewed, dictated and finalized at location F. AL SCIENCE TEACHER
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
[2023-02-23 14:54] VITALS: BP 155/100; PULSE 79; RESP 20; TEMP 36; O2SAT 100
[2023-02-23] MEDS: ACETAMINOPHEN 500 MG TABLET 1000 MG PO (15:52)
[2023-02-23] MEDS: CYCLOBENZAPRINE HCL 5 MG TABLET PO (15:52)
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
[2023-02-23 17:47] VITALS: BP 130/84; PULSE 80; RESP 16; O2SAT 98
== END 2023-02-23 17:51 | disposition home or self-care (01) ==
LOC: ANHED 17:41
PROVIDERS: Emergency Provider Physician Assistant; PCP Family Medicine
DX: M54.2 Cervicalgia (principal); M54.50 Low back pain, unspecified; F41.9 Anxiety disorder, unspecified; F32.A Depression, unspecified; K21.9 Gastro-esophageal reflux disease without esophagitis; V43.52XA Car driver injured in collision with other type car in traffic accident, initial encounter
CPT/HCPCS: 70450; 72125; 72131; 73030; 73521; 99284; A9270

== ENCOUNTER 2023-05-13 13:40 | Emergency (ER) | payer BC, SELFPAY ==
[2023-05-13 13:44] VITALS: BP 126/96; PULSE 96; RESP 16; TEMP 36.3; O2SAT 100
--- NOTE | 2023-05-13 13:48 | ED.URI ---
HPI - URI/Sore Throat General Chief Complaint: Upper Respiratory Infection Stated Complaint: +COVID/BODY ACHES/EYE DRAINAGE/EARACHE Time Seen by Provider: 05/13/23 14:05 Source: patient and RN notes reviewed Mode of arrival: ambulatory Limitations: no limitations History of Present Illness HPI Narrative: 42-year-old female presents with concern for body aches, fever, fatigue, cough, ear pressure. Reports she had a positive at home COVID test. Reports symptoms started yesterday. She is concerned she also have the flu MD elicited complaint: cough and sore throat Related Data Home Medications Medication Instructions Recorded Confirmed trazodone 50 mg tablet 50 mg PO QHS PRN Insomnia 09/11/20 05/13/23 calcium carbonate 200 mg calcium 200 mg PO PRN 11/21/20 04/22/23 (500 mg) chewable tablet (Tums) albuterol sulfate 90 mcg/actuation 2 inh inhalation Q4H PRN shortness 07/24/22 04/22/23 aerosol inhaler of breath or wheezing bupropion HCl 300 mg 24 hr tablet, 300 mg PO QAM 10/03/22 05/13/23 extended release (Wellbutrin XL) ergocalciferol (vitamin D2) 1,250 1,250 mcg PO WEEKLY 04/22/23 04/22/23 mcg (50,000 unit) capsule estradiol 2 mg tablet 2 mg PO DAILY 04/22/23 05/13/23 fluticasone propionate 50 1 spray intranasal BID PRN 04/22/23 04/22/23 mcg/actuation nasal spray,suspension (Flonase Allergy Relief) sertraline 100 mg tablet 100 mg PO DAILY 04/22/23 05/13/23 Allergies Allergy/AdvReac Type Severity Reaction Status Date / Time No Known Allergies Allergy Verified 05/13/23 13:55 Review of Systems Review of Systems: CONSTITUTIONAL: Reports malaise. EYES: Denies visual changes, redness, or discharge. ENT: Reports rhinorrhea, congestion CARDIOVASCULAR: Denies chest pain, palpitations, or edema. RESPIRATORY: Reports productive cough. Denies dyspnea. GASTROINTESTINAL: Denies abdominal pain, nausea, vomiting, diarrhea SKIN: Denies rash or itching. MUSCULOSKELETAL: Reports myalgia. NEUROLOGIC: Reports headache. All systems reviewed & are unremarkable except as noted in HPI and below PMFSH Past Medical History Medical History Anxiety and depression follows with psych Family history of breast cancer mother's sister GERD without esophagitis History of cervical fracture (~04/18/14) Tobacco use Surgical History Surgical History H/O: hysterectomy History of unilateral fallopian tube excision (~2008) Hx of cholecystectomy (~2005) Family History Family History Mother Family history of alcoholism Depression Social History Social History Social History: Patient quit smoking 3 weeks ago. Smoking packs per day: 0.25 Smoking cigarettes per day: 5.0 Years smoked: 20 Smoking pack-years: 5.00 Smoking status: Former smoker Tobacco type: cigarettes Second hand tobacco smoke exposure: No Smoking end date: 08/04/22 Alcohol intake: former Substance use: former Substance use type: marijuana Lack of Transportation: No Lack of Food: Never True Current Housing: I Have Housing Concerned About Future Housing: No Difficulty Paying Gas/Electric Bills: No Difficulty Paying for Meds: No Currently Unemployed: No Education: Associate Degree Difficulty w/ Childcare or Family Care: No Living arrangements: with family Occupation/Education: occupation Gender identity (if verbalized by the patient): Female Sexual Orientation (if Verbalized by the Patient): Straight or Heterosexual Spiritual care concerns: No Agree to blood products: Yes Comments At time of signature, agree with nursing past medical, surgical, social and family history. There is no relevant family history pertinent to the presenting complaint Exam Narrative: GENERAL: Nontoxic-appearing, well-nourished, and in no acute di
[2023-05-13 14:11] VITALS: O2SAT 100
== END 2023-05-13 14:23 | disposition home or self-care (01) ==
PROVIDERS: Emergency Provider Nurse Practitioner; PCP Family Medicine
DX: U07.1 COVID-19 (principal); Z87.891 Personal history of nicotine dependence; K21.9 Gastro-esophageal reflux disease without esophagitis; F41.9 Anxiety disorder, unspecified; F32.A Depression, unspecified
CPT/HCPCS: 87804; 99213; G0463

== ENCOUNTER 2023-06-27 17:04 | Emergency (ER) | payer BC, SELFPAY ==
--- NOTE | ~2023-06-27 | XR_ITS ---
EXAM: XR finger 4th RT min 2V DATE: 06/27/2023 17:23 HISTORY: finger caught in dog collar . COMPARISON: None available. FINDINGS: Normal mineralization. Oblique, mildly distracted intra-articular fracture of the proximal aspect of the right fourth distal phalange which may be fused. No lytic or blastic lesion. Joint spa tobi and physes are maintained. No erosion or periosteal change. Soft tissues within normal limits. IMPRESSION: Oblique, mildly distracted intra-articular fracture of the proximal aspect of the right f ourth distal phalange, with apparent fusion which may indicate this a chronic fracture, healed in mil d deformity. Correlate with pain/tenderness and extensor range of motion. Reviewed, dictated and finalized at location K. IMPRESSION: Oblique, mildly distracted intra-articular fracture of the proximal aspect of the right fourth distal phalange, with apparent fusion which may ind icate this a chronic fracture, healed in mild deformity. Correlate with pain/te nderness and extensor range of motion.
[2023-06-27 17:14] VITALS: BP 132/115; PULSE 110; RESP 16; TEMP 36.6; O2SAT 100
--- NOTE | 2023-06-27 17:14 | ED.GENADULT ---
HPI - General Adult General Chief complaint: Extremity Injury, Upper Stated complaint: INJURED FINGER Source: patient, RN notes reviewed and old records reviewed Mode of arrival: ambulatory Limitations: no limitations History of Present Illness HPI narrative: 42 female presents to [facility] with complaints of pain, swelling, bruising to right 4th finger. Patient states was outside with dog and had lesion around finger and dog took off. Patient denies any other injury. Related Data Home Medications Medication Instructions Recorded Confirmed trazodone 50 mg tablet 50 mg PO QHS PRN Insomnia 09/11/20 06/27/23 albuterol sulfate 90 mcg/actuation 2 inh inhalation Q4H PRN shortness 07/24/22 06/27/23 aerosol inhaler of breath or wheezing bupropion HCl 300 mg 24 hr tablet, 300 mg PO QAM 10/03/22 06/27/23 extended release (Wellbutrin XL) estradiol 2 mg tablet 2 mg PO DAILY 04/22/23 06/27/23 fluticasone propionate 50 1 spray intranasal BID PRN 04/22/23 06/27/23 mcg/actuation nasal ALLERGIES spray,suspension (Flonase Allergy Relief) sertraline 100 mg tablet 100 mg PO DAILY 04/22/23 06/27/23 cholecalciferol (vitamin D3) 25 25 mcg PO DAILY 06/03/23 06/27/23 mcg (1,000 unit) capsule Allergies Allergy/AdvReac Type Severity Reaction Status Date / Time No Known Allergies Allergy Verified 06/27/23 17:13 Review of Systems Constitutional: Constitutional: Reports no additional constitutional complaints, Denies body ache(s), Denies chills, Denies fatigue, Denies fever(s) and Denies headache(s) Eyes: Eyes: Reports no additional eye complaints and Denies blurry vision ENT: Reports system reviewed and no additional complaints, except as documented, Denies vertigo, Denies dizziness, Denies ear discharge, Denies otalgia, Denies facial pain, Denies headache(s), Denies nasal congestion, Denies nasal discharge, Denies sinus pain, Denies sinus pressure and Denies sore throat Cardiovascular: Cardiovascular: Reports no additional cardiovascular complaints, Denies chest pain, Denies chest pain at rest, Denies rapid heart rate and Denies dyspnea Respiratory: Respiratory: Reports no additional respiratory complaints, Denies chest congestion, Denies cough, Denies pain on inspiration, Denies pain with cough and Denies dyspnea Gastrointestinal: Gastrointestinal: Denies abdominal pain, Denies diarrhea, Denies nausea and Denies vomiting Musculoskeletal: Musculoskeletal: Reports as per HPI Comments: Right 4th finger pain, swelling, bruising Integumentary/Breasts: Skin/Breast: Denies rash Neurologic: Reports system reviewed and no additional complaints, except as documented, Denies vertigo, Denies dizziness and Denies headache(s) Endocrine: Endocrine: Denies fatigue [facility] Past Medical History Medical History Anxiety and depression follows with psych Family history of breast cancer mother's sister GERD without esophagitis History of cervical fracture (~04/18/14) Tobacco use Surgical History Surgical History H/O: hysterectomy History of unilateral fallopian tube excision (~2008) Hx of cholecystectomy (~2005) Family History Family History Mother Family history of alcoholism Depression Social History Social History Social History: Patient quit smoking 3 weeks ago. Smoking packs per day: 0.25 Smoking cigarettes per day: 5.0 Years smoked: 20 Smoking pack-years: 5.00 Smoking status: Former smoker Tobacco type: cigarettes Second hand tobacco smoke exposure: No Smoking end date: 08/04/22 Alcohol intake: former Substance use: former Substance use type: marijuana Lack of Transportation: No Lack of Food: Never True Current Housing: I Have Housing Concerned About Future Housing: No Difficulty Paying Gas/Electric Bills:
== END 2023-06-27 18:12 | disposition home or self-care (01) ==
PROVIDERS: Emergency Provider Registered Nurse; PCP Family Medicine
DX: S62.634A Displaced fracture of distal phalanx of right ring finger, initial encounter for closed fracture (principal); X58.XXXA Exposure to other specified factors, initial encounter; F41.9 Anxiety disorder, unspecified; F32.A Depression, unspecified; K21.9 Gastro-esophageal reflux disease without esophagitis; Z87.891 Personal history of nicotine dependence
CPT/HCPCS: 29130; 73140; 99214; G0463

== ENCOUNTER 2023-09-07 14:40 | Outpatient (CLI) | payer BC, SELFPAY ==
--- NOTE | ~2023-09-07 | XR_ITS ---
EXAM: XR hand LT min 3V DATE: 09/07/2023 14:53 HISTORY: M79.642 - Pain in left hand, crepitus base of 1st digit . COMPARISON: None available. FINDINGS: Normal mineralization. No fracture or dislocation. No lytic or blastic lesion. Mild degene rative change at the first CMC joint. No erosion or periosteal change. Soft tissues within normal olivas its. 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 Reviewed, dictated and finalized at location K.
== END 2023-09-07 14:41 | disposition home or self-care (01) ==
LOC: ANHIMG 14:41
PROVIDERS: PCP Family Medicine; Visit Provider Plastic Surgery
DX: M79.642 Pain in left hand (principal); M19.042 Primary osteoarthritis, left hand
CPT/HCPCS: 73130

== ENCOUNTER 2023-12-16 02:19 | Day surgery (SDC) | payer BC, SELFPAY ==
--- NOTE | 2023-12-09 09:32 | PC.NURSE ---
Addendum entered by Rhianna Isaac RN 12/10/23 12:50: Pt instructed no food or drink after midnight. Addendum entered by Shaneka Brian RN 12/09/23 13:11: Message left for pt to stop her vitamins and suppliments three days prior to surgery day Original Note: Report to the Outpatient Waiting Room, entrance under the green pavilion located off [facility], at time __0700 on date __12/16/23 . Planned Procedure Time: __09 .? Time changes happen often and if your time is changed the preop area will call you the afternoon before. - You and your visitor will be asked to self-screen and do not enter if you have any COVID symptoms. Please call surgeon if you need to reschedule. - A mask is optional within the hospital at this time. Patients may have clear liquids (water, carbonated beverages, clear teas, apple juice) until 3 hours prior to surgery with a maximum of 20 ounces. - No food from midnight until time of surgery and no smoking - Infants may have breast milk until 4 hours before surgery, formula 6 hours prior to surgery. - Children will be allowed to drink immediately following surgery.? If applicable, please bring a bottle or sippy cup to assist with drinking. Juice, water, soda, and popsicles are readily available.? For infants on formula, please bring formula the day of surgery.? Pacifiers are allowed. Take only the following medications with a SIP of water on the morning of surgery: __Bupropion, Inhalers (if needed) DO NOT STOP ANY OF YOUR OTHER PRESCRIPTION MEDICATIONS PRIOR TO SURGERY EXCEPT THE FOLLOWING Medications to discontinue per physician N/A Date to take last dose N/A Please no make-up, nail [place], hairspray, perfume, deodorant, or body powder the day of surgery.? No jewelry (including any body piercings) or valuables the day of surgery, leave them at home.? Please take a shower or bath the night before, or the morning of, surgery with an antibacterial soap.? Wear comfortable, loose fitting clothing.? Children are encouraged to wear pajamas. - Jewelry must be removed prior to entering the operating room.? Rings and piercings that are not removed may be cut off. - The hospital will not accept responsibility for valuables.? - Please leave all valuables, including medications, at home the day of surgery. If you are going home after surgery, a licensed truck driver teamster must drive you home.? - NO public transportation without another adult if you receive anesthesia. - We recommend that an adult stay with you for 24 hours following discharge. - We also recommend that you do not drive, make important decision, drink alcoholic beverages, or take any drugs that were not prescribed by your health care provider for at least 24 hours after your discharge time. For Pediatric surgeries, we recommend two adults accompany the child home. Follow any additional instructions given to you from your surgeon. Telephone instructions given to Ramya Valdes___and asked if any additional questions and then verbalized understanding. Patient advised to call surgeon office or pre surgery nurse liaison [phone] if any additional questions.
[2023-12-09 09:37] VITALS: BMI 29.7
--- NOTE | 2023-12-16 07:03 | WPDHPUPDATE1 ---
History and Physical Update Update Date/Time: 12/16/23 07:03 Patient seen and examined in pre-operative holding area. No interval change in medical history or symptoms. Patient recalls previous discussion of benefits and alternatives to procedure. Continues to desire to proceed with left endoscopic possible open carpal tunnel release . Reviewed procedure, post-op expectations and risks including but not limited to bleeding, infection, injury to tendon/nerve/vessel, decreased hand function, stiffness, RSD, no change or worsening of symptoms. I discussed the possible use of assistants and their participation in the case. Patient stated understanding and signed the consent form wishing to proceed.
--- NOTE | 2023-12-16 07:03 | W.PM.PROC2 ---
Procedure Note - Detailed Date of Procedure 12/16/23 Pre-op Diagnosis left carpal tunnel syndrome Post-op Diagnosis Same Procedure Performed left ectr Surgeon [place] MD Medicaid Service Coordinator mary richardson pa-c Anesthesia MAC Description of Procedure INFORMED CONSENT: The patient was seen and examined and marked in the pre-op area.? The patient signed the consent form. PROCEDURE IN DETAIL:The patient taken back to OR on the stretcher in supine position. Time out performed with anesthesia, surgeon and staff agreeing on patient's name site and surgery to be performed SCDs were placed on the lower extremities and inflated. A tourniquet was placed on {left} upper extremity and antibiotics given IV After anesthesia administered sedation I injected {4}cc 1%lido with epi and 0.5% marcaine plain at the operative site The?{left upper extremity}?was prepped and draped in sterile fashion the??{left upper extremity} was? exsanguinated with Esmarch bandage and tourniquet inflated to 250mmHg I made a transverse incision in the {left} volar distal wrist crease through skin and dermis with 15 blade scalpel.? Littler scissors spread down to antebrachial fascia. A small incision was made in antebrachial fascia allowing access to Carpal tunnel. I proceeded with sequential dilation staying in line with the ring finger and hugging the hook of the hamate.? I then used the synovial elevator to free any adhesions from the underside of the transverse carpal ligament. Next I was able to insert the Microaire endoscopic carpal tunnel device with direct visualization of the transverse fibers on the monitor and proceeded with complete segmental retrograde release of the ligament in its entirety.? I irrigated with normal saline and closed with 4-0 monocryl for dermis and subcuticular closure. A dressing of Dermabond, 4x4, jen, and a volar splint was applied for patient safety, security, and comfort and secured with an brenda bandage after the tourniquet was let down noting the hand was warm and well perfused. The patient was then awaken from anesthesia and transferred to the recovery room in stable condition.? Complications - none EBL- 0cc Disposition - home in stable conditions mary richardson pa-c was essential for positioning, retracton, closure and dressing placement [facility] Billing Surgery - Charge Forward: Surgery Billing ([id number] for mary)
[2023-12-16 07:30] VITALS: BP 140/93; PULSE 73; RESP 14; TEMP 36.1; O2SAT 100
[2023-12-16] MEDS: LACTATED RINGERS 1,000 ML 30 ML IV CONT (08:30)
--- NOTE | 2023-12-16 08:33 | WPDANESEPPF ---
Anes - Initial Pre Proc Eval Procedure: Operation Date: 12/16/23 09:00 Proposed Procedures p Left Endoscopic Carpal Tunnel Release, Possible Open - New [place] MD Date/Time: 12/16/23 08:33 Surgeon: New [place] MD Pre Op Diagnosis: left carpal tunnel syndrome Patient Data Age: 43 Gender: F Height: 1.6 m Weight: 77.2 kg Last Vital Signs Temp 36.1 C L 12/16/23 07:30 Pulse 73 12/16/23 07:30 Resp 14 12/16/23 07:30 BP 140/93 H 12/16/23 07:30 Pulse Ox 100 12/16/23 07:30 O2 Del Method Room Air 12/16/23 07:30 Allergies Allergy/AdvReac Type Severity Reaction Status Date / Time No Known Allergies Allergy Verified 12/16/23 07:55 Home Medications Medication Instructions Recorded Confirmed Type trazodone 50 mg tablet 50 mg PO QHS PRN Insomnia 09/11/20 12/09/23 History cyanocobalamin (vitamin B-12) 1,000 mcg sublingual DAILY #90 tabs 08/25/22 12/09/23 Rx 1,000 mcg sublingual tablet bupropion HCl 300 mg 24 hr tablet, 300 mg PO QAM 10/03/22 12/09/23 History extended release (Wellbutrin XL) estradiol 2 mg tablet 2 mg PO DAILY 04/22/23 12/09/23 History fluticasone propionate 50 1 spray intranasal BID PRN 04/22/23 12/09/23 History mcg/actuation nasal ALLERGIES spray,suspension (Flonase Allergy Relief) beclomethasone dipropionate 40 2 inh inhalation Q12H #10.6 grams 05/14/23 12/09/23 Rx mcg/actuation HFA breath activated aerosol inhalational spacing device #1 ea 05/14/23 12/08/23 Rx albuterol 90 mcg-budesonide 80 2 inh inhalation 6XD PRN shortness 06/03/23 12/09/23 Rx mcg/actuation HFA aerosol inhaler of breath or wheezing #10.7 grams (Airsupra) cholecalciferol (vitamin D3) 25 25 mcg PO DAILY 06/03/23 12/09/23 History mcg (1,000 unit) capsule omeprazole 40 mg capsule,delayed 40 mg PO DAILY #90 caps 06/10/23 12/09/23 Rx release Patient hx anesthesia problems: none Family hx anesthesia problems: none Results Review: All pre-operative results and documents have been reviewed as part of the pre-operative evaluation. [facility] Past Medical History Medical History Anxiety and depression follows with psych Family history of breast cancer mother's sister GERD without esophagitis History of cervical fracture (~04/18/14) Tobacco use Surgical History Surgical History H/O: hysterectomy History of unilateral fallopian tube excision (~2008) Hx of cholecystectomy (~2005) Family History Family History Mother Family history of alcoholism Depression Social History Social History Social History: Patient quit smoking 3 weeks ago. Smoking packs per day: 0.25 Smoking cigarettes per day: 5.0 Years smoked: 20 Smoking pack-years: 5.00 Smoking status: Current every day smoker Tobacco type: cigarettes Second hand tobacco smoke exposure: Yes Smoking end date: 08/04/22 Alcohol intake: current Drinks per week: 3 Substance use: never Substance use type: does not use Lack of Transportation: No Lack of Food: Never True Current Housing: I Have Housing Concerned About Future Housing: No Difficulty Paying Gas/Electric Bills: No Difficulty Paying for Meds: No Currently Unemployed: No Education: Associate Degree Difficulty w/ Childcare or Family Care: No Living arrangements: with family Occupation/Education: occupation Gender identity (if verbalized by the patient): Female Sexual Orientation (if Verbalized by the Patient): Straight or Heterosexual Spiritual care concerns: No Agree to blood products: Yes Anes - Eval Final PreProcedure Day of Procedure 12/16/23 08:33 Patient weight: obese Heart: regular rate and rhythm Lungs: clear to auscultation Airway: Mallampati scale class II Neurological: alert and oriented
[2023-12-16] MEDS: ceFAZolin 2 GM/D5W 50 ML 2 GM/50 ML BAG IVPB (09:23)
[2023-12-16] MEDS: LIDO 1%/EPINEPHRINE 1:100,000 50 ML VIAL 10 ML INFILTRATE (09:37)
[2023-12-16 09:43] VITALS: BP 118/73; PULSE 78; RESP 16; O2SAT 96
[2023-12-16 10:10] VITALS: BP 113/95; PULSE 69; RESP 16
== END 2023-12-16 10:30 | disposition home or self-care (01) ==
PROVIDERS: PCP Family Medicine; Visit Provider Plastic Surgery
PROC: 01N54ZZ Release Median Nerve, Percutaneous Endoscopic Approach (ICD-10-PCS; CPT 29848; principal; 2023-12-16 09:00)
DX: G56.02 Carpal tunnel syndrome, left upper limb (principal); K21.9 Gastro-esophageal reflux disease without esophagitis; F41.8 Other specified anxiety disorders; Z79.51 Long term (current) use of inhaled steroids; F17.210 Nicotine dependence, cigarettes, uncomplicated; E66.9 Obesity, unspecified; Z68.30 Body mass index [BMI] 30.0-30.9, adult
CPT/HCPCS: 29848; J0690; J2405; J2704; J3010; J7120

== ENCOUNTER 2023-12-24 08:57 | Emergency (ER) | payer BC, SELFPAY ==
[2023-12-24 09:25] VITALS: BP 119/88; PULSE 94; RESP 16; TEMP 36.4; O2SAT 100
--- NOTE | 2023-12-24 10:06 | ED.URI ---
HPI - URI/Sore Throat General Chief Complaint: Upper Respiratory Infection Stated Complaint: Sore Throat/Congestion Time Seen by Provider: 12/24/23 10:06 History of Present Illness HPI Narrative: 43-year-old female with history of asthma presented for complaint of nasal congestion, sore throat and wheezing. Onset this morning. Used her inhaler which resolved the wheezing. Denies nausea, vomiting, diarrhea, fevers or chills. Related Data Home Medications Medication Instructions Recorded Confirmed trazodone 50 mg tablet 50 mg PO QHS PRN Insomnia 09/11/20 12/24/23 bupropion HCl 300 mg 24 hr tablet, 300 mg PO QAM 10/03/22 12/24/23 extended release (Wellbutrin XL) estradiol 2 mg tablet 2 mg PO DAILY 04/22/23 12/24/23 fluticasone propionate 50 1 spray intranasal BID PRN 04/22/23 12/24/23 mcg/actuation nasal ALLERGIES spray,suspension (Flonase Allergy Relief) cholecalciferol (vitamin D3) 25 25 mcg PO DAILY 06/03/23 12/24/23 mcg (1,000 unit) capsule Allergies Allergy/AdvReac Type Severity Reaction Status Date / Time No Known Allergies Allergy Verified 12/24/23 09:22 Review of Systems Review of Systems: CONSTITUTIONAL: Denies body aches, fever, chills, or sweats. EYES: Denies visual changes, redness, or discharge. ENT: Reports rhinorrhea, sore throat CARDIOVASCULAR: Denies chest pain, palpitations, or edema. RESPIRATORY: Denies dyspnea. GASTROINTESTINAL: Denies abdominal pain, nausea, vomiting, or diarrhea. SKIN: Denies rash, itching, or wounds. MUSCULOSKELETAL: Denies back pain, joint pain, or myalgia. NEUROLOGIC: Denies headache PMFSH Past Medical History Medical History Anxiety and depression follows with psych Family history of breast cancer mother's sister GERD without esophagitis History of cervical fracture (~04/18/14) Tobacco use Surgical History Surgical History H/O: hysterectomy History of unilateral fallopian tube excision (~2008) Hx of cholecystectomy (~2005) Family History Family History Mother Family history of alcoholism Depression Social History Social History Social History: Patient quit smoking 3 weeks ago. Smoking packs per day: 0.25 Smoking cigarettes per day: 5.0 Years smoked: 20 Smoking pack-years: 5.00 Smoking status: Current every day smoker Tobacco type: cigarettes Second hand tobacco smoke exposure: Yes Smoking end date: 08/04/22 Alcohol intake: current Drinks per week: 3 Substance use: never Substance use type: does not use Lack of Transportation: No Lack of Food: Never True Current Housing: I Have Housing Concerned About Future Housing: No Difficulty Paying Gas/Electric Bills: No Difficulty Paying for Meds: No Currently Unemployed: No Education: Associate Degree Difficulty w/ Childcare or Family Care: No Living arrangements: with family Occupation/Education: occupation Gender identity (if verbalized by the patient): Female Sexual Orientation (if Verbalized by the Patient): Straight or Heterosexual Spiritual care concerns: No Agree to blood products: Yes Exam Narrative: GENERAL: well-appearing, no acute distress. EYES: conjunctivae clear ENT: Mucous membranes moist. TMs pearly triplett with normal light reflex bilaterally; no tragal tenderness. Oropharynx not erythematous without lesions. Tonsils not enlarged and without exudate. No drooling, no hoarseness, no trismus, uvula midline. No tripod positioning, hot potato voice, or soft palate swelling. NECK: Supple. No lymphadenopathy CHEST: Clear to auscultation, breath sounds equal. No respiratory distress, speaks in full sentences. HEART: Regular rate and rhythm. No murmur heard. SKIN: Warm, dry, no rash. NEURO: Alert and oriented x3. Course Course Emergency Co
[2023-12-24 10:21] LABS: EDSTREPNEGPOS1 Negative (Negative)
== END 2023-12-24 10:14 | disposition home or self-care (01) ==
PROVIDERS: Emergency Provider Nurse Practitioner Family; PCP Family Medicine
DX: J06.9 Acute upper respiratory infection, unspecified (principal); Z87.891 Personal history of nicotine dependence; K21.9 Gastro-esophageal reflux disease without esophagitis
CPT/HCPCS: 87081; 87880; 99213; G0463

== ENCOUNTER 2024-07-03 12:57 | Emergency (ER) | payer BC, SELFPAY ==
--- NOTE | ~2024-07-03 | XR_ITS ---
HISTORY: low back/si joint pain COMPARISON: Reference is made to a CT examination of the lumbar spine dated 02/23/2023. TECHNIQUE: 2 view lumbar spine. FINDINGS: Lumbar vertebral bodies are normally aligned. There are 5 non-rib bearing lumbar vertebral bodies. Narrowing of the intervertebral disc space is identified at the level of L5/S1. Remaining disc spaces and vertebral body heights are well maintained. Facet arthropathy is also noted. There are no lytic or sclerotic lesions. Paraspinal soft tissues are unremarkable IMPRESSION: Degenerative disease, without acute fracture. Reviewed, dictated and finalized at location A.
--- NOTE | 2024-07-03 12:59 | ED.BACK ---
HPI - Back Pain/Injury General Chief Complaint: Back Pain/Injury Stated Complaint: Back Pain Time Seen by Provider: 07/03/24 13:15 Source: patient Mode of arrival: ambulatory Limitations: no limitations History of Present Illness HPI Narrative: Ramya is a 43-year-old female patient presenting to the clinic today with complaints of lower back pain/hip pain x3 days. She reports she injured her back when she bent forward trying to shave her legs in the shower. Is having some weakness and pain radiating into the right leg. Has been taking ibuprofen without relief. Has not taken any ibuprofen or Tylenol today. Has been seen by the chiropractor and they were afraid to touch her due to inflammation. She is requesting an x-ray. Denies any saddle anesthesia or loss of bowel or bladder. Related Data Home Medications ?Medication ?Instructions ?Recorded ?Confirmed ?Last Taken ?Type trazodone 50 mg tablet 50 mg PO QHS PRN Insomnia 09/11/20 06/23/24 12/08/23 History bupropion HCl 300 mg 24 hr tablet, 300 mg PO QAM 10/03/22 06/23/24 12/09/23 History extended release (Wellbutrin XL) estradiol 2 mg tablet 2 mg PO DAILY 04/22/23 06/23/24 12/09/23 History fluticasone propionate 50 1 spray intranasal BID PRN 04/22/23 06/23/24 Unknown History mcg/actuation nasal ALLERGIES spray,suspension (Flonase Allergy Relief) cholecalciferol (vitamin D3) 25 25 mcg PO DAILY 06/03/23 06/23/24 12/09/23 History mcg (1,000 unit) capsule Allergies Allergy/AdvReac Type Severity Reaction Status Date / Time No Known Allergies Allergy Verified 07/03/24 13:09 Review of Systems Review of Systems: Pertinent positives per HPI. Patient denies any fever, chills, rash, headache, visual changes, dizziness, cough, shortness of breath, chest pain, palpitations, nausea, vomiting, diarrhea, constipation, abdominal pain, or any urinary issues. [facility] Past Medical History Medical History History of trigger finger Anxiety and depression URI, acute Irregular menstruation, unspecified Heat intolerance Acute bilateral low back pain with bilateral sciatica GERD without esophagitis Family history of breast cancer mother's sister Tobacco use Anxiety and depression follows with psych History of cervical fracture (~04/18/14) Surgical History Surgical History H/O: hysterectomy Hx of cholecystectomy (~2005) History of unilateral fallopian tube excision (~2008) Family History Family History Mother Family history of alcoholism Depression Social History Social History Social History: Patient quit smoking 3 weeks ago. Smoking packs per day: 0.25 Smoking cigarettes per day: 5.0 Years smoked: 20 Smoking pack-years: 5.00 Smoking status: Former smoker Tobacco type: cigarettes Second hand tobacco smoke exposure: Yes Smoking end date: 01/04/24 Alcohol intake: current Drinks per week: 3 Substance use: never Substance use type: marijuana Last use: edibles once a week Do You Feel Safe in your Home?: Yes Lack of Transportation: No Lack of Food: Never True Current Housing: I Have Housing Concerned About Future Housing: No Difficulty Paying Gas/Electric Bills: No Difficulty Paying for Meds: No Currently Unemployed: No Education: Associate Degree Difficulty w/ Childcare or Family Care: No Living arrangements: with family Occupation/Education: occupation 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 There is no relevant family history pertinent to the patient complaint. Exam Narrative: General: Well-developed, well nourished, in no apparent distress Head: Normocephalic, atraumatic. Cardio: Regular rate and rhythm, s1 and s2 normal, no murmur appreciated. Resp: Clear to auscultation bilaterally, no rhonchi, rales, wheezing or rubs. Musculoskeletal: No deformity, tender to palpation to the lower lumbar spine as well as over the bilateral SI joints right greater than left, limited range of motion due to pain, left lower extremity muscle strength strong, right muscle strength weaker. SLT positive at approximately 30? on the right and 60? on the left, patellar reflexes 1/4 bilaterally, negative foot drop, cautious gait and station Course Course Emergency Course: Portions of this record may have been created with voice recognition software. Level of Care: Express Care Visit Vital Signs Vital signs: Vital Signs Temperature 36.2 C L 07/03/24 13:10 Pulse Rate 98 07/03/24 13:10 Respiratory Rate 16 07/03/24 13:10 Blood Pressure 116/86 07/03/24 13:10 Pulse Oximetry 99 07/03/24 13:10 Temperature 36.2 C L 07/03/24 13:10 Pulse Rate 98 07/03/24 13:10 Respiratory Rate 16 07/03/24 13:10 Blood Pressure 116/86 07/03/24 13:10 Pulse Oximetry 99 07/03/24 13:10 Vital signs reviewed MDM - Back Pain/Injury MDM Narrative Medical decision making narrative: At the time of visit patient is resting comfortably on the exam table. Patient appears to be nontoxic. Medications: Toradol 60 mg IM given in the clinic today. Pain improved to 2/10-initially rated pain 6/10. Diagnostics: X-ray of the lumbar spine was performed shows degenerative disc disease over L5-S1. No acute fracture Plan: I suspect patient has lumbar strain with lower degenerative disc disease over L5-S1. Prescription for Medrol Dosepak and baclofen was sent to the pharmacy. Supportive measures were discussed with the patient and they voiced understanding discharge instructions and agrees to treatment plan. Return precautions reviewed Differential Diagnosis Differential diagnosis: Likely lumbar radiculopathy, sciatica, strain of lumbar region, renal colic and other (SI joint dysfunction) Imaging Data Radiologist's impression: ITS Impressions Lumbar Spine X-Ray 07/03/24 14:08 IMPRESSION: Degenerative disease, without acute fracture. Discharge Plan Discharge Clinical Impression: Degenerative disc disease at L5-S1 level, Acute lumbar radiculopathy Lumbar back sprain Qualifiers: Encounter type: initial encounter Qualified Code(s): S33.5XXA - Sprain of ligaments of lumbar spine, initial encounter Patient Disposition: Home, Self-Care Condition: Stable Instructions: Antibiotic Form, Acute Low Back Pain (ED), Lumbar Radiculopathy (ED), Lower Back Exercises (ED) Additional Instructions: Take any prescription medication only as prescribed-Medrol Dosepak and baclofen Be mindful of sedation precautions given to you if taking a muscle relaxer. May use heat or ice to the affected area Consider massage or chiropractor adjustment if this was discussed with provider May use blue emu, lidocaine patches, or asper cream to affected area- do not apply heat or ice directly over cream- can cause burn. Complete appropriate back stretching exercises. Follow up with your PCP in 3-5 days if symptom persist. Patient Language: Chinese Prescriptions: New baclofen 10 mg tablet 10 mg PO TID PRN (Reason: muscle spasm) 7 Days Qty: 21 0RF methylprednisolone [Medrol (Jamal)] 4 mg tablets,dose pack See Rx Instructions PO .COMPLEX Qty: 21 0RF Rx Instructions: orally per package directions No Action cholecalciferol (vitamin D3) 25 mcg (1,000 unit) capsule 25 mcg PO DAILY Airsupra 90-80 mcg/actuation HFA aerosol inhaler 2 inh inhalation 6XD PRN (Reason: shortness of breath or wheezing) Qty: 10.7 0RF Rx Instructions: as a single dose; may repeat up to 6 doses per day (12 inhalations) trazodone 50 mg tablet 50 mg PO QHS PRN (Reason: Insomnia) bupropion HCl [Wellbutrin XL] 300 mg tablet extended release 24 hr 300 mg PO QAM fluticasone propionate [Flonase Allergy Relief] 50 mcg/actuation spray,suspension 1 spray intranasal BID PRN (Reason: ALLERGIES) Rx Instructions: administer into each nostril estradiol 2 mg tablet 2 mg PO DAILY cyanocobalamin (vitamin B-12) 1,000 mcg tablet, sublingual 1,000 mcg sublingual DAILY Qty: 90 1RF beclomethasone dipropionate 40 mcg/actuation HFA aerosol breath activated 2 inh inhalation Q12H Qty: 10.6 0RF Rx Instructions: administer with spacer, rinse and spit (DME) inhalational spacing device Spacer See Rx Instructions .ROUTE .MEDSUPPLY Qty: 1 0RF Rx Instructions: As directed omeprazole 40 mg capsule,delayed release(DR/EC) 40 mg PO DAILY Qty: 90 0RF Rx Instructions: LAST REFILL UNTIL SEEN DUE FOR AN APPOINTMENT Follow-up/Referrals: PHYSICIAN,DIRECTOR OF MEDICARE [Primary Care Provider] - Stand Alone Forms: Work/School Release IP Time of Disposition: 14:16 Quality NIHSS Nursing Documentation ED NIHSS nursing documentation: reviewed/agree
[2024-07-03 13:10] VITALS: BP 116/86; PULSE 98; RESP 16; TEMP 36.2; O2SAT 99
[2024-07-03] MEDS: KETOROLAC (*BKC) 60 MG/2 ML VIAL IM (13:24)
== END 2024-07-03 14:22 | disposition home or self-care (01) ==
PROVIDERS: Emergency Provider Nurse Practitioner Family
DX: M51.379 Other intervertebral disc degeneration, lumbosacral region without mention of lumbar back pain or lower extremity pain (principal); M54.16 Radiculopathy, lumbar region; S33.5XXA Sprain of ligaments of lumbar spine, initial encounter; X50.9XXA Other and unspecified overexertion or strenuous movements or postures, initial encounter; K21.9 Gastro-esophageal reflux disease without esophagitis; F41.9 Anxiety disorder, unspecified; F32.A Depression, unspecified; Z87.891 Personal history of nicotine dependence
CPT/HCPCS: 72100; 96372; 99213; G0463; J1885

== ENCOUNTER 2025-03-08 08:06 | Emergency (ER) | payer OTHER, SELFPAY ==
--- NOTE | 2025-03-08 08:09 | ED_ITS ---
HPI - Nausea/Vomiting/Diarrhea General Chief complaint: Nausea/Vomiting/Diarrhea Stated complaint: VOMITING Time Seen by Provider: 03/08/25 08:20 Source: patient Mode of arrival: ambulatory Limitations: no limitations History of Present Illness HPI Narrative: Ramya is a 44 year old female patient presenting to the clinic today with c/o nausea, vomiting, diarrhea, and abdomen pain x1 day. She reports symptoms sta rted around 2:00 a.m. yesterday afternoon. Denies any known fever but has had chills and felt sweaty. A lot of the symptoms would occur after vomiting. States she has some sharp generalized abdominal pain. Rates pain 7/10 currently. Has not taken any medications for her symptoms. She is now vomiting up bile and dry heaving. Last bowel movement was 45 minutes prior to arrival. No blood in her stool. Denies any urinary symptoms. History of hysterectomy. Related Data Home Medications ?Medication ?Instructions ?Recorded ?Confirmed ?Last Taken ?Type trazodone 50 mg tablet 50 mg PO QHS PRN Insomnia 03/08/25 12/08/23 History bupropion HCl 300 mg 24 hr tablet, 300 mg PO QAM 10/0303/08/25 12/09/23 History extended release (Wellbutrin XL) estradiol 2 mg tablet 2 mg PO DAILY 04/22/2303/0812/09/23 History fluticasone propionate 50 1 spray intranasal BID PRN 0 04/22/23 03/08/25 Unknown History mcg/actuation nasal ALLERGIES spray,suspension (Flonase Allergy Relief) cholecalciferol (vitamin D3) 25 25 mcg PO DAILY 03/08/25 12/09/23 History mcg (1,000 unit) capsule Allergies Allergy/AdvReac Type Severity Reaction Status Date / Time No Known Allergies Allergy Verified 03/08/25 08:12 Review of Systems Review of Systems: Pertinent positives per HPI. Patient denies any fever, chills, rash, headache, visual changes, dizziness, cough, runny nose, sore throat, shortness of breath, chest pain, palpitations, constipation, or any urinary issues. PMFSH Past Medical History Medical History History of trigger finger Anxiety and depression URI, acute Irregular menstruation, unspecified Heat intolerance Acute bilateral low back pain with bilateral sciatica GERD without esophagitis Family history of breast cancer mother's sister Tobacco use Anxiety and depression follows with psych History of cervical fracture (~04/18/14) Surgical History Surgical History H/O: hysterectomy Hx of cholecystectomy (~2005) History of unilateral fallopian tube excision (~2008) Family History Family History Mother Family history of alcoholism Depression Social History Social History Social History: Patient quit smoking 3 weeks ago. Smoking packs per day: 0.25 Smoking cigarettes per day: 5.0 Years smoked: 20 Smoking pack-years: 5.00 Smoking status: Former smoker Tobacco type: cigarettes Second hand tobacco smoke exposure: Yes Smoking end date: 01/04/24 Alcohol intake: current Drinks per week: 3 Substance use: never Substance use type: marijuana Last use: edibles once a week Lack of Transportation: No Lack of Food: Never True Current Housing: I Have Housing Concerned About Future Housing: No Difficulty Paying Gas/Electric Bills: No Difficulty Paying for Meds: No Currently Unemployed: No Education: Associate Degree Difficulty w/ Childcare or Family Care: No Living arrangements: with family Occupation/Education: occupation 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 Gender identity (if verbalized by the patient): Female Sexual Orientation (if Verbalized by the Patient): Straight or Heterosexual Spiritual care concerns: No Agree to blood products: Yes Comments At the time of my signature, I reviewed and agree with the nursing past medical, surgical, social, and family history. There is no relevant family history pertinent to the patient complaint. Exam Narrative: General: Well-developed, well nourished, acutely ill-appearing Head: Normocephalic, atraumatic Eyes: Pupils equally round and reactive to light bilaterally, EOM intact, sclera and conjunctive clear, no discharge, lids normal Ears: TMs intact and clear, ear canals clear, no drainage, grossly hearing normal. Nose: Nares patent, no discharge, no inflammation, no sinus tenderness. Mouth: Oropharynx without lesions or masses, good dentition, mucous membranes dry. Neck: Supple, trachea midline, no enlargement of anterior or posterior cervical nodes, no thyroid masses or goiter palpable. Cardio: Regular rate and rhythm, s1 and s2 normal, no murmur appreciated. Resp: Clear to auscultation bilaterally anteriorly and posteriorly, no rhonchi, rales, wheezing or rubs Abdomen: Soft, pliable, bowel sounds present in all quadrants, generalized tender to palpation, no organomegly, no CVAT tenderness. Course Course Level of Care: Express Care Visit Vital Signs Vital signs: Vital Signs Temperature 36.2 C L 03/08/25 08:17 Pulse Rate 126 H 03/08/25 08:17 Respiratory Rate 16 03/08/25 08:17 Blood Pressure 131/112 H 03/08/25 08:17 Pulse Oximetry 100 03/08/25 08:17 Temperature 36.2 C L 03/08/25 08:17 Pulse Rate 126 H 03/08/25 08:17 Respiratory Rate 16 03/08/25 08:17 Blood Pressure 131/112 H 03/08/25 08:17 Pulse Oximetry 100 03/08/25 08:17 Transfer Transfered to: [place] Transportation: Other (Private car) Transfer rationale: N/V/D dehydration Accepting physician: Dr. Jackson Transfer comments: Private car MDM MDM Narrative Medical decision making narrative: At the time of visit patient is resting on the exam table. Patient appears acutely ill but nontoxic. C/o nausea, vomiting, diarrhea, and abdomen pain x1 day. She reports symptoms started around 2:00 a.m. yesterday afternoon. Denies any known fever but has had chills and felt sweaty. A lot of the symptoms would occur after vomiting. States she has some sharp generalized abdominal pain. Rates pain 7/10 currently. Has not taken any medications for her symptoms. She is now vomiting up bile and dry heaving. Last bowel movement was 45 minutes prior to arrival. No blood in her stool. Denies any urinary symptoms. History of hysterectomy. Vital signs reviewed and blood pressure was 131/112 with a heart rate of 126. On exam patient has bilateral TMs intact and clear, no nasal drainage, oral pharynx normal-dry mucous membranes, heart rates-regular rhythm/tachycardia, lung sounds are clear, generalized abdominal tenderness to palpation-soft, pliable, nondistended abdomen with present bowel sounds. COVID and influenza testing was ordered. Labs: COVID and influenza testing was negative in the clinic today. Plan: Patient is having nausea vomiting and diarrhea-likely viral gastroenteritis with dehydration. Shared decision making performed-1st option- offer to send the patient home with ondansetron and Levsin for her symptoms and have her attempt to oral rehydrate-go the ER if symptoms worsen. 2nd option-go to the ER for further evaluation-IV fluids and medications for nausea/diarrhea. Patient would like to go the emergency room for IV fluids this time. Patient would like to go to [place] emergency room. Contacted Dr. Jackson at [place] ER and she accepts patient for transfer. Patient to drive via private car. Differential Diagnosis Differential Diagnosis: Viral gastroenteritis, acute nausea/vomiting, food poisoning, infectious diarrhea, influenza, COVID Discharge Plan Discharge Clinical Impression: Acute dehydration, Gastroenteritis Patient Disposition: Acute Care Hospital Condition: Stable Patient Language: Polish Prescriptions: No Action cholecalciferol (vitamin D3) 25 mcg (1,000 unit) capsule 25 mcg PO DAILY trazodone 50 mg tablet 50 mg PO QHS PRN (Reason: Insomnia) bupropion HCl [Wellbutrin XL] 300 mg tablet extended release 24 hr 300 mg PO QAM fluticasone propionate [Flonase Allergy Relief] 50 mcg/actuation spray,suspension 1 spray intranasal BID PRN (Reason: ALLERGIES) Rx Instructions: administer into each nostril estradiol 2 mg tablet 2 mg PO DAILY benzonatate 100 mg capsule 100 mg PO TID PRN (Reason: cough) Qty: 30 0RF cyanocobalamin (vitamin B-12) 1,000 mcg tablet, sublingual 1,000 mcg sublingual DAILY Qty: 90 1RF beclomethasone dipropionate 40 mcg/actuation HFA aerosol breath activated 2 inh inhalation Q12H Qty: 10.6 0RF Rx Instructions: administer with spacer, rinse and spit (DME) inhalational spacing device Spacer See Rx Instructions .ROUTE .MEDSUPPLY Qty: 1 0RF Rx Instructions: As directed omeprazole 40 mg capsule,delayed release(DR/EC) 40 mg PO DAILY Qty: 90 1RF Follow-up/Referrals: Nikky Tadeo APRN [Primary Care Provider, Family Practice] Time of Disposition: 08:30 Quality NIHSS Nursing Documentation ED NIHSS nursing documentation: reviewed/agree
[2025-03-08 08:17] VITALS: BP 131/112; PULSE 126; RESP 16; TEMP 36.2; O2SAT 100
[2025-03-08 08:42] LABS: EDCOVIDSCREEN Negative (Negative); EDINFLUASCREEN Negative (Negative); EDINFLUBSCREEN Negative (Negative)
== END 2025-03-08 08:30 | disposition short-term general hospital (02) ==
PROVIDERS: Emergency Provider Nurse Practitioner Family; PCP Nurse Practitioner Family
DX: E86.0 Dehydration (principal); K52.9 Noninfective gastroenteritis and colitis, unspecified; Z20.822 Contact with and (suspected) exposure to COVID-19; K21.9 Gastro-esophageal reflux disease without esophagitis; F41.9 Anxiety disorder, unspecified; F32.A Depression, unspecified
CPT/HCPCS: 87426; 87804; 99212; G0463

== ENCOUNTER 2025-03-08 08:48 | Emergency (ER) | payer OTHER, SELFPAY ==
--- NOTE | ~2025-03-08 | CT_ITS ---
EXAMINATION: CT abdomen pelvis w con DATE: 03/08/2025 10:49 INDICATION: Generalized abdominal pain. TECHNIQUE: Computed tomography (CT) of the abdomen and pelvis was performed with 100 mL Omnipaque 350 intravenous contrast. Automated exposure control and iterative reconstruction technique were employed. The dose-length product was 296.13 mGy-cm. COMPARISON: None. FINDINGS: The visualized portions of lung bases demonstrate mild atelectasis. No pleural effusion. The heart size is normal. No pericardial effusion. The liver is normal. The changes of cholecystectomy. The spleen, pancreas, adrenal glands, and kidneys are normal. There is liquid stool in the colon suggesting diarrhea. There are no dilated loops of bowel. The appendix is normal. There are no pathologically enlarged lymph nodes. There is no free intraperitoneal fluid. There is moderate lumbar spondylosis. IMPRESSION: 1. No specific etiology for the patient's symptoms. Reviewed, dictated and finalized at location E. [employer]
--- NOTE | 2025-03-08 09:05 | ECG_ITS ---
Test Date: 2025-03-08 09:09:43 Measurements Intervals [place] Rate: 100 P: 42 MO: 119 QRS: -11 QRSD: 82 T: 63 QT: 353 QTc: 456 Interpretive Statements SINUS TACHYCARDIA WITH SHORT MO INTERVAL LOW QRS VOLTAGE IN PRECORDIAL LEADS BASELINE ARTIFACT- I, II, III, AVR, AVL BORDERLINE ECG No previous ECG available for comparison Electronically Signed On 03-08-2025 10:12:46 PSYCH SALES SPECIALIST by Jules Bucio D.O.
[2025-03-08 09:06] VITALS: BP 124/97; PULSE 131; RESP 18; TEMP 36.5; O2SAT 100
--- NOTE | 2025-03-08 09:07 | ED.NAVMDI ---
HPI - Nausea/Vomiting/Diarrhea General Chief complaint: Nausea/Vomiting/Diarrhea Stated complaint: n/v/d Time Seen by Provider: 03/08/25 08:59 History of Present Illness HPI Narrative: 44-year-old female presents ER complaining of/V/D since yesterday afternoon. Patient also endorses cramping to her abdomen, lower back and bilateral legs. Denies fevers. Denies blood in stool or emesis. Related Data Home Medications ?Medication ?Instructions ?Recorded ?Confirmed ?Last Taken ?Type trazodone 50 mg tablet 50 mg PO QHS PRN Insomnia 09/11/20 03/08/25 12/08/23 History bupropion HCl 300 mg 24 hr tablet, 300 mg PO QAM 10/03/22 03/08/25 12/09/23 History extended release (Wellbutrin XL) estradiol 2 mg tablet 2 mg PO DAILY 04/22/23 03/08/25 12/09/23 History fluticasone propionate 50 1 spray intranasal BID PRN 04/22/23 03/08/25 Unknown History mcg/actuation nasal ALLERGIES spray,suspension (Flonase Allergy Relief) cholecalciferol (vitamin D3) 25 25 mcg PO DAILY 06/03/23 03/08/25 12/09/23 History mcg (1,000 unit) capsule Allergies Allergy/AdvReac Type Severity Reaction Status Date / Time No Known Allergies Allergy Verified 03/08/25 08:50 Review of Systems Review of Systems: All systems reviewed & are unremarkable except as noted in HPI and below PMFSH Past Medical History Medical History History of trigger finger Anxiety and depression URI, acute Irregular menstruation, unspecified Heat intolerance Acute bilateral low back pain with bilateral sciatica GERD without esophagitis Family history of breast cancer mother's sister Tobacco use Anxiety and depression follows with psych History of cervical fracture (~04/18/14) Surgical History Surgical History H/O: hysterectomy Hx of cholecystectomy (~2005) History of unilateral fallopian tube excision (~2008) Family History Family History Mother Family history of alcoholism Depression Social History Social History Social History: Patient quit smoking 3 weeks ago. Smoking packs per day: 0.25 Smoking cigarettes per day: 5.0 Years smoked: 20 Smoking pack-years: 5.00 Smoking status: Former smoker Tobacco type: cigarettes Second hand tobacco smoke exposure: Yes Smoking end date: 01/04/24 Alcohol intake: current Drinks per week: 3 Substance use: never Substance use type: marijuana Last use: edibles once a week Lack of Transportation: No Lack of Food: Never True Current Housing: I Have Housing Concerned About Future Housing: No Difficulty Paying Gas/Electric Bills: No Difficulty Paying for Meds: No Currently Unemployed: No Education: Associate Degree Difficulty w/ Childcare or Family Care: No Living arrangements: with family Occupation/Education: occupation 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[employer] Gender identity (if verbalized by the patient): Female Sexual Orientation (if Verbalized by the Patient): Straight or Heterosexual Spiritual care concerns: No Agree to blood products: Yes Exam Const: General: cooperative, alert, awake and Physically active Chest: Chest palpation & inspection: normal inspection of the chest Resp: Effort & Inspection: normal respiratory effort GI: Inspection: normal to inspection GI Palp: Yes abdominal tenderness, Yes Soft to palpation and Yes Tenderness to palpation present (GI) Auscultation: normal bowel sounds Skin: General skin exam: normal color Rashes: no rashes Wounds: no wounds Neuro: General: patient oriented x3 and moves all extremities Psych: Appearance: grossly normal Mental Status: mental status grossly normal Course Vital Signs Vital signs: Vital Signs Temperature 36.5 C 03/08/25 09:06 Pulse Rate 131 H 03/08/25 09:06 Respiratory Rate 18 03/08/25 09:06 Blood Pressure 124/97 H 03/08/25 09:06 Pulse Oximetry 100 03/08/25 09:06 Oxygen Delivery Room Air 03/08/25 09:06 Temperature 36.5 C 03/08/25 09:06 Pulse Rate 104 H 03/08/25 10:11 Respiratory Rate 16 03/08/25 10:11 Blood Pressure 125/89 03/08/25 10:11 Pulse Oximetry 99 03/08/25 10:11 Oxygen Delivery Room Air 03/08/25 09:06 MDM MDM Narrative Medical decision making narrative: In summary: 44 old female presents to the ER complaining of N/V/D since yesterday. No significant of derangements and lab findings, and patient is slightly anemic. CT abdomen pelvis shows no evidence of intra-abdominal abnormality. Patient was given antiemetics knee and fluids. On reexamination, patient reported improvement in symptoms. Plan to discharge patient home with antiemetic. Differential Diagnosis Differential Diagnosis: Gastroenteritis, pancreatitis, diverticulitis Lab Data 03/08/25 09:45 Labs: Lab Results 03/08/25 Range/Units 09:45 Sodium 136 L (137-145) mmol/L Potassium 3.4 (3.4-5.0) mmol/L Chloride 101 (98-107) mmol/L Carbon Dioxide 27 (22-30) mmol/L Anion Gap 8 (4-12) mmol/L BUN 10 (7-17) mg/dL Creatinine 0.88 (0.7-1.0) mg/dL Estim Creat Clear Calc Not Reportable Estimated GFR > 60 (59 - ) Glucose 107 (65-110) mg/dL Calcium 9.3 (8.4-10.2) mg/dL Total Bilirubin 0.7 (0.2-1.3) mg/dL AST 26 (14-36) U/L ALT 24 (6-35) U/L Alkaline Phosphatase 67 (38-126) U/L Total Protein 8.3 H (6.3-8.2) g/dL Albumin 4.6 (3.5-5.1) g/dL Lipase 29 (23-300) U/L Beta HCG, Quant < 2.39 mIU/ML Urine Color Dark yellow (Yellow) Urine Appearance Cloudy H (Clear) Urine pH 6.0 (5.0-9.0) Ur Specific Lillian 1.026 (1.001-1.035) Urine Protein 1+ H (Negative) mg/dL Urine Glucose (UA) Negative (Negative) mg/dL Urine Ketones 2+ H (Negative) mg/dL Ur Blood (Man) Negative (Negative) Urine Nitrate Negative (Negative) Urine Bilirubin 1+ H (Negative) Urine Urobilinogen 1.0 (<2.0) mg/dL Add Ur Microanalysis Reviewed Leukocyte Esterase Rfl Trace H (Negative) ALYSSA/UL Urine RBC 6-10 H (0-2) /hpf Urine WBC 0-5 (0-3) /hpf Ur Squamous Epith Cells Moderate (Few) /hpf Urine Bacteria 1+ H /hpf Urine Casts 0-2 Imaging Data Radiologist's impression: ITS Impressions Abdomen/Pelvis CT 03/08/25 11:04 IMPRESSION: 1. No specific etiology for the patient's symptoms. Discharge Plan Discharge Clinical Impression: Gastroenteritis Patient Disposition: Home Condition: Stable Instructions: Antibiotic Form, Gastroenteritis (ED), Acute Nausea and Vomiting (ED) Patient Language: Cameroonian Prescriptions: New ondansetron 4 mg tablet,disintegrating 4 mg PO Q8H Qty: 20 0RF No Action cholecalciferol (vitamin D3) 25 mcg (1,000 unit) capsule 25 mcg PO DAILY trazodone 50 mg tablet 50 mg PO QHS PRN (Reason: Insomnia) bupropion HCl [Wellbutrin XL] 300 mg tablet extended release 24 hr 300 mg PO QAM fluticasone propionate [Flonase Allergy Relief] 50 mcg/actuation spray,suspension 1 spray intranasal BID PRN (Reason: ALLERGIES) Rx Instructions: administer into each nostril estradiol 2 mg tablet 2 mg PO DAILY benzonatate 100 mg capsule 100 mg PO TID PRN (Reason: cough) Qty: 30 0RF cyanocobalamin (vitamin B-12) 1,000 mcg tablet, sublingual 1,000 mcg sublingual DAILY Qty: 90 1RF beclomethasone dipropionate 40 mcg/actuation HFA aerosol breath activated 2 inh inhalation Q12H Qty: 10.6 0RF Rx Instructions: administer with spacer, rinse and spit (DME) inhalational spacing device Spacer See Rx Instructions .ROUTE .MEDSUPPLY Qty: 1 0RF Rx Instructions: As directed omeprazole 40 mg capsule,delayed release(DR/EC) 40 mg PO DAILY Qty: 90 1RF Follow-up/Referrals: Nikky Tadeo APRN [Primary Care Provider, Family Practice] Time of Disposition: 11:18
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
[2025-03-08] MEDS: METOCLOPRAMIDE HCL INJ 10 MG/2 ML VIAL IV PUSH (09:33)
[2025-03-08] MEDS: FAMOTIDINE 20 MG/2 ML VIAL IV PUSH (09:38)
[2025-03-08] MEDS: SODIUM CHLORIDE 0.9% IV 1,000 ML 999 ML IV CONT (09:41)
[2025-03-08 10:11] VITALS: BP 125/89; PULSE 104; RESP 16; O2SAT 99
[2025-03-08 10:13] LABS: Add Urine Microscopic? YES; Alanine Aminotransferase 24 U/L (6-35); Albumin Level 4.6 g/dL (3.5-5.1); Alkaline Phosphatase 67 U/L (38-126); Anion Gap 8 mmol/L (4-12); Appearance Urine Cloudy (Clear); Aspartate Amino Transferase 26 U/L (14-36); Bilirubin,Total 0.7 mg/dL (0.2-1.3); Blood Urea Nitrogen 10 mg/dL (7-17); Calcium 9.3 mg/dL (8.4-10.2); Carbon Dioxide 27 mmol/L (22-30); Chloride 101 mmol/L (98-107); Estimated Glomerular Filt Rate > 60; Glucose 107 mg/dL (65-110); Glucose Urine UA Negative (Negative); Leukocyte Esterase Ur Trace LEU/UL (Negative); Lipase 29 U/L (23-300); Need Manual Microscopic Reviewed; Nitrate Urine Negative (Negative); Non Pathogenic Casts 0-2; Potassium 3.4 mmol/L (3.4-5.0); Sodium 136 mmol/L (137-145); Specific Grav Ur 1.026 (1.001-1.035); Total Protein 8.3 g/dL (6.3-8.2)
--- OUTSIDE RECORDS SUMMARY | 2025-03-08 10:17 | XMS_ITS | Clinical Summary ---
Author Organization [facility] Address [address] [place] [address] Care Team Providers Care Security Operations Specialist Name Role Phone Bryan Ramires MD Primary Care Provider Allergies No known active allergies Medications sertraline (ZOLOFT) 100 MG tablet 01/06/2022 Active traZODone (DESYREL) 50 MG tablet 01/06/2022 Active methylPREDNISol one, GARLAND, (MEDROL DOSEPAK) 4 MG tablet 6 TABLETS ON DAY ONE, 5 TABLETS DAY TWO, 4 TABLETS DAY THREE, 3 TABLETS DAY FOUR, 2 TABLETS DAY FIVE, AND 1 TABLET DAY SIX 1 each 01/20/2022 Active Social History Tobacco Use Types Packs/Day Years Used Date Smoking Tobacco: Every Day Cigarettes Smokeless Tobacco: Never Alcohol Use Standard Drinks/Week Comments Yes 0 (1 standard drink = 0.6 oz pur e alcohol) Comments No Sex and Gender Information Value Date Recorded Sex Assigned at Female 06/18/2024 3:03 AM CDT Legal Sex Female 6:29 PM CDT Gender Identity Not on file Sexual Orientation Not on file Last Filed Vital Signs Vital Sign Reading Time Taken Comments Blood Pressure 124/76 06/18/2024 5:37 AM CDT Pulse 84 06/18/2024 5:37 AM CDT Temperature 36.6 C (97.9 F) 06/18/2024 5:37 AM CDT Respiratory Rate 16 06/18/2024 5:37 AM CDT Oxygen Saturation 96% 06/18/2024 5:37 AM CDT Inhaled Oxygen Concentration - - Weight 75.3 kg (166 lb) 06/18/2024 2:57 AM CDT Height 162.6 cm (5' 4) 06/18/2024 2:57 AM CDT Body Mass Index 28.49 06/18/2024 2:57 AM CDT Plan of Treatment Health Maintenance Due Date Last Done Comments Cervical Cancer Screening Pa p Smear (Age 30 to 64) Every 3 Years 1980 Annual Physical 11/24/1983 Hepatitis C 1998 Hepatitis B Vaccines (1 of 3 - 19+ 3-dose series) 11/24/1999 Pneumococcal Vaccine: Pediatrics (0 to 5 Years) and At-Risk Patients (6 to 49 Years) (1 of 2 - PCV) 11/24/1999 HPV Vaccines (1 - 3-dose SCD M series) 11/24/2007 Cervical Cancer Screening Pa p with HPV Testing (Age 30 to 64) Every 5 Years 2010 Cervical Cancer Screening wi th HPV 2010 Mammogram Screening 2020 DTaP, Tdap and Td Vaccines ( 2 - Td or Tdap) 04/18/2024 04/18/2014 COVID-19 Vaccine (3 - 2024-2 6 season) 2024 09/25/2020, 08/21/2020 Influenza Adult (#1) 2025 Hepatitis A Vaccines Aged Out No long er eligible based on patient's age to complete this topic Meningococcal B Vaccine Aged Out No l onger eligible based on patient's age to complete this topic Meningococcal Vaccine Aged Out No mansoor sheela eligible based on patient's age to complete this topic RSV Immunizations Under 20 Months Aged Out No longer eligible b ased on patient's age to complete this topic Insurance [facility] Care Teams Security Operations Specialist Relationship Specialty Start Date End Date Bryan Ramires MD [address] [place] [address] PCP - General FAMILY PRACTICE 06/18/24
--- OUTSIDE RECORDS SUMMARY | 2025-03-08 10:17 | XMS_ITS | Clinical Summary ---
Author Organization [facility] Address [address] [place] [address] Care Team Providers Care Flash Oven Operator Name Role Phone Debra Tadeoh Alyce [facility] Primary Care Provider Source Comments [facility],non-owned Affiliates and Associated Physician Practices is amultiple site organization consisting of ambulatory clinics and hospital sitesin [place], [place], [place] and [place]. This disclosure is being madepursuant to the Care Everywhere program and may not contain all information available regarding this patient. Last updated 17.[facility] Active Problems Problem Noted Date Diagnosed Date [...] on file Legal Sex Female 6:21 PM PLANT OPERATOR/SHIFT SUPERVISOR Gender Identity Not on file Sexual Orientation Not on file Last Filed Vital Signs Vital Sign Reading Time Taken Comments Blood Pressure 106/72 05/19/2014 3:00 PM PLANT OPERATOR/SHIFT SUPERVISOR Pulse 88 05/19/2014 3:00 PM PLANT OPERATOR/SHIFT SUPERVISOR Temperature 36.9 C (98.4 F) 05/19/2014 2:25 PM PLANT OPERATOR/SHIFT SUPERVISOR Respiratory Rate 18 05/19/2014 3:00 PM PLANT OPERATOR/SHIFT SUPERVISOR Oxygen Saturation 99% 05/19/2014 3:00 PM PLANT OPERATOR/SHIFT SUPERVISOR Inhaled Oxygen Concentration - - Weight 67.6 kg (149 lb) 05/19/2014 11:10 AM PLANT OPERATOR/SHIFT SUPERVISOR Height 163.8 cm (5' 4.5) 05/19/2014 11:10 AM CS T Body Mass Index 25.18 05/19/2014 11:10 AM PLANT OPERATOR/SHIFT SUPERVISOR Plan of Treatment Health Maintenance Due Date [...] this topic Insurance ANTHEM ANTHEM Care Teams Flash Oven Operator Relationship Specialty Start Date End Date Nikky Tadeo, VENEER MARKER-OPTICAL INSTRUMENT INSPECTOR [address] [place] [address] PCP - General 12/18/20
--- OUTSIDE RECORDS SUMMARY | 2025-03-08 10:17 | XMS_ITS | Data Portability ---
Author Organization [facility] Address [address] [place] [address] Care Team Providers Care Medical Scientific Officer Name Role Phone MANJEET GOMEZ Primary Care Provider [phone] Assessment Encounter Date Assessment Date Assessment LastModified by Organization Details LastModified Time 08/17/2024 08/17/2024 Annual gynecological exam performed. Patient will come back in a year unless there are new symptoms. [email or web address] Not available 08/17/2024 10:20:06 Plan of Treatment Reminders Order Date Submit Date Provider Last Modified By Organization Details Last Modified Time Details Appointments None recorded. Lab hormone panel, serum or plasma 2024 025 [facility] (Lab), [address] [place], [address], 5 11:11:18 testosteron e free/testos terone total, ratio, serum 2024 025 [facility] (Lab), [address] [place], [address], 5 11:11:19 progesteron e, serum 2024 025 [facility] (Lab), [address] [place], [address], 5 11:11:18 25-hydroxyv itamin D2 + 25-hydroxyv itamin D3, QN, serum or plasma 2024 025 [facility] (Lab), [address], [place], [address], 5 11:11:19 vitamin B12, serum 2024 025 [facility] (Lab), [address], [place], [address], 5 11:11:19 hormone panel, serum or plasma 2024 025 [facility] (Lab), [address], [place], [address], 5 19:13:16 testosteron e free/testos terone total, ratio, serum 2024 025 [facility] (Lab), [address], [place], [address], 5 19:13:18 progesteron e, serum 2024 025 [facility] (Lab), [address], [place], [address], 5 19:13:18 TSH, serum or plasma 2024 025 [facility] (Lab), [address], [place], [address], 5 19:13:17 CBC w/ auto diff 2024 025 [facility] (Lab), [address], [place], [address], 5 19:13:16 25-hydroxyv itamin D2 + 25-hydroxyv itamin D3, QN, serum or plasma 2024 025 [facility] (Lab), [address], [place], [address], 5 19:13:17 vitamin B12, serum 2024 025 [facility] (Lab), [address], [place], [address], 5 19:13:17 hormone panel, serum or plasma 2023 024 [facility] (Lab), [address], [place], [address], 4 09:11:48 Referral None recorded. Procedures None recorded. Surgeries None recorded. Imaging MAMMO, screening, digital, bilateral 2024 025 [email or web address] [facility], [address], [address], [address], 5 11:50:28 Medication Orders estradiol 1 mg tablet 2024 025 [facility] [address] [place], [address], 5 18:07:43 progesteron e micronized 100 mg capsule 2024 025 [facility] [address] [place], [address], 5 18:07:43 ergocalcife rol (vitamin D2) 1,250 mcg (50,000 unit) capsule 2024 025 [facility] [address] [place], [address], 5 18:07:42 cyanocobala min (vit B-12) 1,000 mcg/mL injection solution 2024 025 [email or web address] Not available 21:17:31 Zepbound 2.5 mg/0.5 mL subcutaneou s pen injector 2023 025 [facility] [address] [place], [address], 14:58:37 Patient TargetsNo targets recorded. Patient InstructionsNo instructions recorded. Reason for Referral None Reported. Results Created Date Observation Date Name Description Value Unit Range Abnormal Flag Note LastModifiedBy Organization Detail LastModifiedTime 09/28/1909/28/2023 FSH, LH, ESTRA DIOL estradiol 115.0 pg/mL This assay was perfo rmed using [employer] ratio n reage nts and test kits. Value s obtai kerrie with other assay metho ds or kits canno t be [facility] . Femal e Estra diol Range s: Folli cular phasE 12.4- 233 pg/mL Ovula tion phasE 41.0- 398 pg/mL Lutea l phasE 22.3- 341 pg/mL Postm enopa usal <5-13 8 pg/mL Healt hy Pregn ant Women 1st Trime ster 154-3 243 pg/mL 2nd Trime ster 1561- 26903 pg/mL 3rd Trime ster 8525- >3000 0 pg/mL Not Available [facility] (Lab) [address] [place], [address], 09/29/2023 09:11:48 09/28/19 24 09/28/2023 FSH, LH, ESTRA DIOL FSH 14.7 mIU/m L This assay was perfo rmed using [employer] ratio n reage nts and test kits. Value s obtai kerrie with other assay metho ds or kits canno t be used [facility] . Femal es Folli cular : 3.5-1 2.5 mIU/m L Ovula tion: 4.7-2 1.5 mIU/m L Lutea l: 1.7-7 .7 mIU/m L Postm enopa use: 25.8- 134.8 mIU/m L Not Available [facility] (Lab) [address] [place], [address], 09/29/2023 09:11:48 09/28/19 24 09/28/2023 FSH, LH, ESTRA DIOL LH 4.1 mIU/m L This assay was perfo rmed using [employer] ratio n reage nts and test kits. Value s obtai kerrie with other assay metho ds or kits canno t be used inter [facility] . Femal es Mid-F ollic ular: 2.4-1 2.6 mIU/m L Mid-C ycle: 14.0- 95.6 mIU/m L Mid-L uteal : 1.0-1 1.4 mIU/m L Postm enopa use: 7.7-5 8.5 mIU/m L Not Available [facility] (Lab) [address], [place], [address], 09/29/2023 09:11:48 08/10/1908/09/2024 CBC W/DIF F WBC 5.3 10'3/ uL 3.5-10 .5 Not Available [facility] (Lab) [address], [place], [address], 08/12/2024 19:13:16 08/10/1908/09/2024 CBC W/DIF F RBC 3.94 10'6/ uL (based on docume nted legal sex) 3.80-5 .20 Not Available [facility] (Lab) [address] [place], [address], 08/12/2024 19:13:16 08/10/1908/09/2024 CBC W/DIF F HGB 12.6 g/dL (based on docume nted legal sex) 11.6-1 5.4 Not Available [facility] (Lab) [address] [place], [address], 08/12/2024 19:13:16 08/10/1908/09/2024 CBC W/DIF F HCT 38.1 % (based on docume nted legal sex) 34.0-4 5.0 Not Available [facility] (Lab) [address] [place], [address], 08/12/2024 19:13:16 08/10/1908/09/2024 CBC W/DIF F MCV 96.7 fL 80.0-9 9.0 Not Available [facility] (Lab) [address], [place], [address], 08/12/2024 19:13:16 08/10/1908/09/2024 CBC W/DIF F MCH 32.0 pg 27.0-3 4.0 Not Available [facility] (Lab) [address], [place], [address], 08/12/2024 19:13:16 08/10/1908/09/2024 CBC W/DIF F MCHC 33.1 g/dL 32.0-3 5.5 Not Available [facility] (Lab) [address], [place], [address], 08/12/2024 19:13:16 08/10/1908/09/2024 CBC W/DIF F RDW 12.8 % 11.0-1 5.0 Not Available [facility] (Lab) [address], [place], [address], 08/12/2024 19:13:16 08/10/1908/09/2024 CBC W/DIF F plt 385 10'3/ uL 150-40 0 Not Available [facility] (Lab) [address], [place], [address], 08/12/2024 19:13:16 08/10/1908/09/2024 CBC W/DIF F MPV 9.4 fL 8.8-12 .1 Not Available [facility] (Lab) [address] [place], [address], 08/12/2024 19:13:16 08/10/1908/09/2024 CBC W/DIF F neutrophils 53.7 % 34.0-7 3.0 Not Available [facility] (Lab) [address] [place], [address], 08/12/2024 19:13:16 08/10/19 25 08/09/2024 CBC W/DIF F lymphocytes 35.4 % 15.0-5 0.0 Not Available [facility] (Lab) [address], [place], [address], 08/12/2024 19:13:16 08/10/19 25 08/09/2024 CBC W/DIF F monocytes 7.4 % 1.0-15 .0 Not Available [facility] (Lab) [address], [place], [address], 08/12/2024 19:13:16 08/10/19 25 08/09/2024 CBC W/DIF F eosinophils 2.3 % 0.0-8. 0 Not Available [facility] (Lab) [address], [place], [address], 08/12/2024 19:13:16 08/10/19 25 08/09/2024 CBC W/DIF F basophils 0.8 % 0.0-2. 0 Not Available [facility] (Lab) [address], [place], [address], 08/12/2024 19:13:16 08/10/19 25 08/09/2024 CBC W/DIF F immature granulocytes 0.4 % no define d refere nce range Immat ure Granu locyt es (IG) repre sents autom ated enume ratio n of Metam yeloc ytes, Myelo cytes and Promy elocy eleazar when IG is < 5%. Blast s are not inclu ded in IG and repor barron separ ately if prese nt. Not Available [facility] (Lab) [address] [place], [address], 08/12/2024 19:13:16 08/10/19 25 08/09/2024 CBC W/DIF F absolute neutrophils 2.8 10'3/ uL 1.5-8. 0 Not Available [facility] (Lab) [address] [place] [facility] [place], [address], 08/12/2024 19:13:16 08/10/1908/09/2024 CBC W/DIF F absolute lymphocytes 1.9 10'3/ uL 1.0-4. 0 Not Available [facility] (Lab) [address], [place], [address], 08/12/2024 19:13:16 08/10/1908/09/2024 CBC W/DIF F absolute monocytes 0.4 10'3/ uL 0.2-1. 0 Not Available [facility] (Lab) [address], [place], [address], 08/12/2024 19:13:16 08/10/1908/09/2024 CBC W/DIF F absolute eosinophils 0.1 10'3/ uL 0.0-0. 6 Not Available [facility] (Lab) [address], [place], [address], 08/12/2024 19:13:16 08/10/1908/09/2024 CBC W/DIF F absolute basophils 0.0 10'3/ uL 0.0-0. 3 Not Available [facility] (Lab) [address], [place], [address], 08/12/2024 19:13:16 08/10/1908/09/2024 CBC W/DIF F absolute immature granulocytes 0.0 10'3/ uL 0.00-0 .10 Refer ence range s for nonbi nary/ inter sex or unspe cifie d gende r patie nts have not been estab lishe d. Pleshyann e refer to the idao wing table for range s estab lishe d for cisge nder patie nts and evalu ate in the clini cuca kaycee xt of the indiv idual patie nt: https ://maverick fitch book. nm.or g/gen derx Not Available [facility] (Lab) [address], [place], [address], 08/12/2024 19:13:16 08/10/19 25 08/09/2024 FSH, LH, ESTRA DIOL estradiol 556.0 pg/mL This assay was perfo rmed using [employer] ratio n reage nts and test kits. Value s obtai kerrie with other assay metho ds or kits canno t be used [facility] . Femal e Estra diol Range s: Folli cular phase 12.4- 233 pg/mL Ovula tion phase 41.0- 398 pg/mL Lutea l phase 22.3- 341 pg/mL Postm enopa usal <5-13 8 pg/mL Healt hy Pregn ant Women 1st Trime ster 154-3 243 pg/mL 2nd Trime ster 1561- 73133 pg/mL 3rd Trime ster 8525- >3000 0 pg/mL Not Available [facility] (Lab) [address] [place], [address], 08/12/2024 19:13:16 08/10/1908/09/2024 FSH, LH, ESTRA DIOL FSH 4.2 mIU/m L This assay was perfo rmed using [employer] ratio n reage nts and test kits. Value s obtai kerrie with other assay metho ds or kits canno t be used [facility] . Femal es Folli cular : 3.5-1 2.5 mIU/m L Ovula tion: 4.7-2 1.5 mIU/m L Lutea l: 1.7-7 .7 mIU/m L Postm enopa use: 25.8- 134.8 mIU/m L Not Available [facility] (Lab) [address] [place], [address], 08/12/2024 19:13:16 08/10/1908/09/2024 FSH, LH, ESTRA DIOL LH 3.4 mIU/m L This assay was perfo rmed using [employer] ratio n reage nts and test kits. Value s obtai kerrie with other assay metho ds or kits canno t be used [facility] . Femal es Mid-F ollic ular: 2.4-1 2.6 mIU/m L Mid-C ycle: 14.0- 95.6 mIU/m L Mid-L uteal : 1.0-1 1.4 mIU/m L Postm enopa use: 7.7-5 8.5 mIU/m L Not Available [facility] (Lab) [address], [place], [address], 08/12/2024 19:13:16 08/10/1908/09/2024 TSH, REFLE X FREE T4 TSH 1.39 uIU/m L 0.30-5 .33 Not Available [facility] (Lab) [address] [place], [address], 08/12/2024 19:13:17 08/10/1908/09/2024 VITAM IN B12 vitamin B12 167 pg/mL 180-91 4 low Melany l Range : 180-9 14 pg/mL . Indet ermin ate Range : 145-1 80 pg/mL . Defic ient Range : <=145 pg/mL . Not Available [facility] (Lab) [address] [place], [address], 08/12/2024 19:13:17 08/10/1908/09/2024 VITAM IN D, 25-OH (TOTA L D2/D3 ) vitamin D, 25-hydroxy, total 24.2 NG/mL 30.0-1 00.0 low Sugge stive of Defic iency : <20 ng/mL Sugge stive of Insuf ficie ncy: 20-29 ng/mL Sugge stive of Suffi cienc y: 30-10 0 ng/mL Sugge stive of Toxic ity: >150 ng/mL Not Available [facility] (Lab) [address] [place], [address], 08/12/2024 19:13:17 08/10/1908/09/2024 PROGE STERO NE progesterone <0.05 NG/mL This assay was perfo rmed using [employer] ratio n reage nts and test kits. Value s obtai kerrie with other assay metho ds or kits canno t be used inter w[facility] eably . Femal e Proge stero ne Range s: Folli cular phase 0.06- 0.89 ng/mL Ovula tion phase 0.12- 12.00 ng/mL Lutea l phase 1.83- 23.90 ng/mL Postm enopa usal <0.05 -0.13 ng/mL Healt hy Pregn ant Women 1st Trime ster 11.0- 44.30 2nd Trime ster 25.40 -83.3 0 3rd Trime ster 58.70 -214. 00 Not Available [facility] (Lab) [address], [place], [address], 08/12/2024 19:13:18 08/10/19 25 08/09/2024 TESTO STERO NE, FREE( DIALY SIS) AND TOTAL (LC/M S/MS) testosterone , total 51 NG/dL 2-45 high For addit ional infor nancy rivas e refer to http: //[facility] kody mandel.que stdia gnost ics.c om/fa q/ Total Testo stero neLCM SMSFA Q165 (This link is being provi ded for infor oumou smith/ educa malu l purpo ses only. ) This test was devel oped and its navya tical perfo rmanc e cheng cteri stics have been deter mined by [facility] Mauri jorge Adkinsi dav [place], [place]. It has not been clear ed or appro ana rosa by the U.S. Food and Drug Admin istra tion. This assay has been valid ated pursu ant to the CLIA regul ation s and is used for clini cuca purpo ses. Not Available [facility] (Lab) [address] [place], [address], 08/12/2024 19:13:18 08/10/19 25 08/09/2024 TESTO STERO NE, FREE( DIALY SIS) AND TOTAL (LC/M S/MS) testosterone , free 3.2 pg/mL 0.1-6. 4 This test was devel oped and its navya tical perfo rmanc e cheng cteri stics have been deter mined by [employer] Mauri ls [place], [place]. It has not been clear ed or appro ana rosa by the U.S. Food and Drug Admin istra tion. This assay has been valid ated pursu ant to the CLIA regul ation s and is used for clini cuca purpo ses. Perfo rming Organ izati on Infor matio n: Site ID: AMD Name: [facility] tutsilvino Addre ss: [id number] [employer] [place], [place] Direc tor: Aria Amado MD PhD Not Available [facility] (Lab) [address] [place], [address], 08/12/2024 19:13:18 11/18/1911/17/2024 PROGE STERO NE progesterone 9.29 NG/mL This assay was perfo rmed using [employer] ratio n reage nts and test kits. Value s obtai kerrie with other assay metho ds or kits canno t be used inter wang eably . Femal e Proge stero ne Range s: Folli cular phase 0.06- 0.89 ng/mL Ovula tion phase 0.12- 12.00 ng/mL Lutea l phase 1.83- 23.90 ng/mL Postm enopa usal <0.05 -0.13 ng/mL Healt hy Pregn ant Women 1st Trime ster 11.0- 44.30 2nd Trime ster 25.40 -83.3 0 3rd Trime ster 58.70 -214. 00 Not Available [facility] (Lab) [address] [place], [address], 11/22/2024 11:11:18 11/18/1911/17/2024 FSH, LH, ESTRA DIOL estradiol 200.0 pg/mL This assay was perfo rmed using [employer] ratio n reage nts and test kits. Value s obtai kerrie with other assay metho ds or kits canno t be used [facility] . Femal e Estra diol Range s: Folli cular phase 12.4- 233 pg/mL Ovula tion phase 41.0- 398 pg/mL Lutea l phase 22.3- 341 pg/mL Postm enopa usal <5-13 8 pg/mL Healt hy Pregn ant Women 1st Trime ster 154-3 243 pg/mL 2nd Trime ster 1561- 23587 pg/mL 3rd Trime ster 8525- >3000 0 pg/mL Not Available [facility] (Lab) [address] [place], [address], 11/22/2024 11:11:18 11/18/19 25 11/17/2024 FSH, LH, ESTRA DIOL FSH 5.3 mIU/m L This assay was perfo rmed using [employer] ratio n reage nts and test kits. Value s obtai kerrie with other assay metho ds or kits canno t be used [facility] . Femal es Folli cular : 3.5-1 2.5 mIU/m L Ovula tion: 4.7-2 1.5 mIU/m L Lutea l: 1.7-7 .7 mIU/m L Postm enopa use: 25.8- 134.8 mIU/m L Not Available [facility] (Lab) [address] [place], [address], 11/22/2024 11:11:18 11/18/19 25 11/17/2024 FSH, LH, ESTRA DIOL LH 7.2 mIU/m L This assay was perfo rmed using [employer] ratio n reage nts and test kits. Value s obtai kerrie with other assay metho ds or kits canno t be used [facility] . Femal es Mid-F ollic ular: 2.4-1 2.6 mIU/m L Mid-C ycle: 14.0- 95.6 mIU/m L Mid-L uteal : 1.0-1 1.4 mIU/m L Postm enopa use: 7.7-5 8.5 mIU/m L Not Available [facility] (Lab) [address], [place], [address], 11/22/2024 11:11:18 11/18/1911/17/2024 VITAM IN B12 vitamin B12 594 pg/mL 180-91 4 Melany l Range : 180-9 14 pg/mL . Indet ermin ate Range : 145-1 80 pg/mL . Defic ient Range : <=145 pg/mL . Not Available [facility] (Lab) [address], [place], [address], 11/22/2024 11:11:18 11/18/1911/17/2024 VITAM IN D, 25-OH (TOTA L D2/D3 ) vitamin D, 25-hydroxy, total 30.6 NG/mL 30.0-1 00.0 Sugge stive of Defic iency : <20 ng/mL Sugge stive of Insuf ficie ncy: 20-29 ng/mL Sugge stive of Suffi cienc y: 30-10 0 ng/mL Sugge stive of Toxic ity: >150 ng/mL Not Available [facility] (Lab) [address], [place], [address], 11/22/2024 11:11:19 11/18/1911/17/2024 TESTO STERO NE, FREE( DIALY SIS) AND TOTAL (LC/M S/MS) testosterone , total 25 NG/dL 2-45 For addit ional infor nancy rivas e refer to http: //[facility] catsidney n.que stdia gnost ics.c om/fa q/ Total Testo stero neLCM SMSFA Q165 (This link is being provi ded for infor oumou smith/ educa malu l purpo ses only. ) This test was devel oped and its navya tical perfo rmanc e cheng cteri stics have been deter mined by [facility] Meena Adkinsi dav [place] nakitaMARSHALL katz. It has not been clear ed or appro ana rosa by the U.S. Food and Drug Admin istra tion. This assay has been valid ated pursu ant to the CLIA regul ation s and is used for clini cuca purpo ses. Not Available [facility] (Lab) [address], [place], [address], 11/22/2024 11:11:19 11/18/19 25 11/17/2024 TESTO STERO NE, FREE( DIALY SIS) AND TOTAL (LC/M S/MS) testosterone , free 1.9 pg/mL 0.1-6. 4 This test was veronica ann and its navya tical perfo rmanc e cheng cteri stics have been deter mined by [employer] krissy Dots[place], [place]. It has not been clear ed or appro ana rosa by the U.S. Food and Drug Admin istra tion. This assay has been valid ated pursu ant to the CLIA regul ation s and is used for clini cuca purpo ses. Perfo rming Organ izati on Infor matio n: Site ID: AMD Name: [employer] Meena Dotson [facility] Addre ss: [id number] [place], [place] Direc tor: Aria Amado MD PhD Not Available [facility] (Lab) [address], [place], [address], 11/22/2024 11:11:19 Result Notes None recorded. Problems Name Problem SNOMED Code Status Onset Date Resolution Date Notes Provider Name and Address Organization Details Recorded Time Mixed anxiety and depressive disorder 887814540 Active 2023 Estefania de la torre [facility] 14:18:30 Problem Notes None recorded. Procedures Surgical History Date Name Laterality Status Provider Name and Address Organization Details Recorded Time 12/04/19 23 TOTAL HYSTERECTOMY, LAPAROSCOPIC, WITH BILATERAL SALPINGECTOMY (SURG) completed Amirah Quijano [facility] 12/04/2022 10:43:26 11/19/19 23 Date of Last Mammogram completed Estefania [facility] 09/28/2023 14:20:30 09/24/19 23 Date of Last Pap Smear completed Hemalatha Sharron [facility] 10/21/2022 10:06:33 04/06/19 21 Date of Last Colonoscopy completed Arlene Madhu [facility] 08/12/2022 11:52:25 04/06/[address] [facility] 09/29/2023 18:05:00 04/06/19 08 laparoscopic bilateral salpingo-oophorect jillian completed [facility] 09/29/2023 18:03:41 04/06/19 08 procedure on heart completed [facility] 09/29/2023 18:06:05 04/06/19 [address] [facility] 09/29/2023 18:04:41 04/06/[address] [facility] 09/29/2023 18:04:02 04/06/[address] [facility] 09/28/2023 14:22:11 04/06/18 98 extraction of wisdom tooth completed [facility] 09/28/2023 14:23:35 Imaging Results None recorded. Procedure Notes None recorded. Medical Equipment None Reported. Allergies No known drug allergies Medications Name Sig Start Date Stop Date Status Note LastModified by Organization Details LastModified Time cyclobenz aprine 10 mg tablet TAKE 1 TABLET BY MOUTH AT BEDTIME NEEDED FOR MUSCLE SPASM 09/27 completed Not Available Not Available Not Available promethaz ine-DM 6.25 mg-15 mg/5 mL oral syrup TAKE 5ML BY MOUTH EVERY 4 TO 6 HOURS NEEDED FOR COUGH 09/27 completed Not Available Not Available Not Available trazodone 50 mg tablet TAKE 1 TABLET BY MOUTH ONCE DAILY AT BEDTIME active Not Available Not Available No t Available azithromy rome 250 mg tablet TAKE 2 TABLETS BY MOUTH ON DAY 1, AND THEN TAKE 1 TABLET BY MOUTH ONCE A DAY ON DAY 2 THROUGH DAY 5 09/27 completed Not Available Not Available Not Available metronida zole 0.75 % (37.5 mg/5 gram) vaginal gel Insert 1 applicat orful every day by vaginal route at bedtime for 5 days. 10/21 completed Not Available Not Available Not Available prednison e 20 mg tablet TAKE 1 TABLET BY MOUTH TWICE DAILY FOR 5 DAYS 09/27 completed Not Available Not Available Not Available sertralin e 100 mg tablet TAKE 1 TABLET BY MOUTH ONCE DAILY IN THE MORNING (APPOINT MENT NEEDED) 09/27 completed Not Available Not Available Not Available Space Chamber USE DIRECTED 08/09 completed Not Available Not Available Not Available omeprazol e 40 mg capsule,d elayed release TAKE 1 CAPSULE BY MOUTH ONCE DAILY active Not Available Not Available No t Available tramadol 50 mg tablet TAKE 1 TABLET BY MOUTH EVERY 6 HOURS NEEDED FOR PAIN 08/09 completed Not Available Not Available Not Available ketorolac 10 mg tablet TAKE 1 TABLET BY MOUTH EVERY 8 HOURS NEEDED FOR PAIN. MAX TOTAL DURATION OF 5 DAYS FOR ALL ORAL, INTRANAS AL, OR PARENTER AL FORMULAT IONS. 08/09 completed Not Available Not Available Not Available meloxicam 7.5 mg tablet take 1 tablet by oral route every day 02/27 completed Prescrib ed Elsewher e: Yes Loca tion: [facility] odify By: [email or web address] En counter DateTime : 12/13/19 15 10:30:00 AM Not Available Not Available Not Available oxycodone -acetamin ophen 5 mg-325 mg tablet 09/27 completed Not Available Not Available Not Available Microgest in FE 04/25 (28) 1 mg-20 mcg (21)/75 mg (7) tablet take 1 tablet by oral route every day 07/08 completed Prescrib ed Elsewher e: No Locat ion: [facility] odify By: [email or web address] Encount er DateTime : 02/28/20 15 02:15:00 PM Not Available Not Available Not Available estradiol 1 mg tablet Take 1 tablet every day by oral route. 2024 active Not Available Not Available Not Avai lable baclofen 10 mg tablet TAKE 1 TABLET BY MOUTH THREE TIMES DAILY NEEDED FOR MUSCLE SPASM FOR 7 DAYS 08/09 completed Not Available Not Available Not Available benzonata te 100 mg capsule TAKE 1 CAPSULE BY MOUTH THREE TIMES DAILY NEEDED FOR COUGH 08/12 completed Not Available Not Available Not Available cyanocoba silke (vit B-12) 1,000 mcg/mL injection solution INJECT 1ML SUBCUTAN EOUSLY ONCE WEEKLY (BRING TO OFFICE FOR INJECTIO N) 2024 active Not Available Not Available Not Avai lable oseltamiv ir 75 mg capsule TAKE 1 CAPSULE BY MOUTH EVERY 12 HOURS FOR 5 DAYS 08/12 completed Not Available Not Available Not Available Advair Diskus 250 mcg-50 mcg/dose powder for inhalatio n INHALE 1 PUFF BY MOUTH TWICE DAILY 08/12 completed Not Available Not Available Not Available progester one micronize d 200 mg capsule Take 1 capsule by mouth once daily 2024 active Not Available Not Available Not Avai lable estradiol 2 mg tablet TAKE 1 TABLET BY MOUTH ONCE DAILY 08/17 completed Not Available Not Available Not Available codeine 10 mg-[place] nesin 100 mg/5 mL oral liquid TAKE 1 TEASPOON FUL (5 MLS) BY MOUTH EVERY 6 HOURS FOR 7 DAYS 08/12 completed Not Available Not Available Not Available ergocalci ferol (vitamin D2) 1,250 mcg (50,000 unit) capsule TAKE 1 CAPSULE BY MOUTH ONCE A WEEK 2024 active Not Available Not Available Not Avai lable methylpre dnisolone 4 mg tablets in a dose pack TAKE BY MOUTH DIRECTED ON INSIDE OF PACKAGE 11/17 completed Not Available Not Available Not Available albuterol sulfate HFA 90 mcg/actua tion aerosol inhaler INHALE 2 PUFFS BY MOUTH 4 TIMES DAILY NEEDED FOR SHORTNES S OF BREATH FOR WHEEZING 08/12 completed Not Available Not Available Not Available sertralin e 50 mg tablet TAKE 1 TABLET BY MOUTH ONCE DAILY 09/27 completed Not Available Not Available Not Available progester one micronize d 100 mg capsule Take 1 capsule every day by oral route at bedtime. 2024 active Not Available Not Available Not Avai lable bupropion HCl XL 300 mg 24 hr tablet, extended release TAKE 1 TABLET BY MOUTH ONCE DAILY WITH A MEAL active Not Available Not Available No t Available bupropion HCl XL 150 mg 24 hr tablet, extended release TAKE 1 TABLET BY MOUTH ONCE DAILY IN THE MORNING FOR 30 DAYS 09/23 completed Not Available Not Available Not Available multivita min active Not Available Not Available Not Available Qvar RediHaler 40 mcg/actua tion HFA breath activated aerosol INHALE 2 PUFFS BY MOUTH EVERY 12 HOURS. ADMINIST ER WITH SPACER. RINSE AND SPIT AFTER USE active Not Available Not Available No t Available Paxlovid 300 mg (150 mg x 2)-100 mg tablets in a dose pack TAKE 3 TABLETS TOGETHER (TWO 150 MG NIRMATRE LVIR TABLETS AND ONE 100 MG RITONAVI R TABLET) BY MOUTH TWICE DAILY FOR 5 DAYS. 09/27 completed Not Available Not Available Not Available Zepbound 2.5 mg/0.5 mL subcutane ous pen injector Inject 2.5 mg by subcutan eous route. 08/09 completed Not Available Not Available Not Available Vitals Date Recorded Body height Body mass index (BMI) Body weight Systolic And Diastolic Provider Name and Address Organization Details Last Updated DateTime 08/09/2024 162.56 cm 28.3 kg/m2 94321.74 g 118/81 mm[Hg] [facility] 08/09/2024 14:58:16 Date Recorded Body height Body mass index (BMI) Body weight Systolic And Diastolic Provider Name and Address Organization Details Last Updated DateTime 08/17/2024 162.56 cm 28.2 kg/m2 77904.15 g 142/86 mm[Hg] [facility] 08/17/2024 17:50:54 Date Recorded Body height Body mass index (BMI) Body weight Systolic And Diastolic Provider Name and Address Organization Details Last Updated DateTime 09/28/2023 162.56 cm 30.2 kg/m2 52565.26 g 125/85 mm[Hg] Estefania Costa [facility] 09/28/2023 14:16:24 Date Recorded Body height Body mass index (BMI) Body weight Systolic And Diastolic Provider Name and Address Organization Details Last Updated DateTime 11/17/2024 162.56 cm 27.1 kg/m2 03671.59 g 125/88 mm[Hg] Carisa Jay [facility] 11/17/2024 09:27:07 Social History Question Answer Notes LastModified by Organizat ion Details LastModified Time Tobacco Smoking Status Former Smoker Betsy Chandler wil, [facility] 11/26/2022 17:09:46 Do You Have An Advance Directive? No [email or web address] Information n ot available 08/09/2024 How Many Years Have You Consumed Alcohol? 20 Information not available 10/02/2022 Are You Blind Or Do You Have Difficulty Seeing? No Information n ot available 10/02/2022 What Is Your Level Of Caffeine Consumption? Moderate Information not available 10/02/2022 In The 14 Days Before Symptom Onset, Have You Had Close Contact With A Laboratory-confirm ed COVID-19 While That Case Was Ill? No Information n ot available 08/12/2022 In The 14 Days Before Symptom Onset, Have You Had Close Contact With A Person Who Is Under Investigation For COVID-19 While That Person Was Ill? No Information not available 08/12/2022 Have You Been To An Area Known To Be High Risk For COVID-19? No Information not available 08/12/2022 Are You Deaf Or Do You Have Serious Difficulty Hearing? No Information not available 10/02/2022 What Type Of Diet Are You Following? REGULAR Information n ot available 10/02/2022 What Is The Highest Grade Or Level Of School You Have Completed Or The Highest Degree You Have Received? [id number] Information not available 10/02/2022 Are There Any Guns Present In Your Home? No Information not available 10/02/2022 Do You Use Protection During Sex? No Information not available 10/02/2022 Do You Use Your Seat Belt Or Car Seat Routinely? Yes Information not available 10/02/2022 Do You Have Smoke And Carbon Monoxide Detectors In Your Home? Yes Information not available 10/02/2022 How Much Tobacco Do You Smoke? No Information not available 10/02/2022 Do You Use Sunscreen Routinely? Yes Information not available 10/02/2022 How Many Years Have You Smoked Tobacco? 20 Information not available 10/02/2022 Have You Used IV Drugs? No Information not available 10/02/2022 Do You Have Difficulty Walking Or Climbing Stairs? No [email or web address] Information not available 09/28/2023 Sex: Unknown Functional Status Question Answer Note LastModified by Organizat ion Details LastModified Time Do you use any illicit or recreational drugs? No Information not available 08/12/2022 What is your level of alcohol consumption? Occasional Information not available 08/12/2022 Are you able to walk independently without assistance or assistive devices? [email or web address] Information not available 10/02/2022 Are you able to care for yourself independently? 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 No [email or web address] Information not available 09/28/2023 What is your exercise level? Occasional Information not available 10/02/2022 Mental Status Question Answer Note LastModified by Organization D etails LastModified Time Do you feel stressed (tense, restless, nervous, or anxious, or unable to sleep at night)? [id number] Information not available 10/02/2022 Family History Relationship Description Onset Age of this Age Resolved Age Notes LastModified by Organization Details LastModified Time Maternal Aunt Malignant neoplasm of breast Not available 2022 09:56:54 Medical History Condition Response Allergies (Food, seasonal, environmental ) Y Other Y Drug/Latex Allergies/Reactions N Blood Transfusion N Breast Cancer N Dermatologic Disorders N Lung Disease N Defects or Inherited Disease N Breast Problem N Gestational Diabetes N Hematologic disorders N Anesthesia Complications N History of STI N Deep Vein Thrombosis N Polycystic ovary syndrome N Anxiety Disorder Y Autoimmune disease N Arthritis N Polyps N Infertility N Acid Reflux (GERD) Y History of abnormal pap N Cancer N Varicosities N Stroke N Neurologic/Epilepsy Y Endometriosis N High Cholesterol N Fibromyalgia N Headaches N Kidney Disease N Heart Problems Y Thyroid Problems N Kidney or Bladder Problems N GI Problems N Eating Disorder N Anemia Y Art (IVF or FET) N Psychiatric Illness N Ovarian Cancer N Diabetes N Pulmonary (TB, Asthma) N Hepatitis/Liver Disease N No Past Medical History N Eczema N Urinary Tract Infection N Abuse/Domestic Violence N Asthma Y Trauma/Violence N Depression/ depression Y Heart Disease N Pre-Eclampsia N Hypertension N Osteoporosis N Thrombophilias N Gynecological History Statement/Question Response Date of Last Mammogram 11/18/2022 Date of LMP 09/18/2022 N On BCP's at Conception? N STIs/STDs N Was last menstrual period normal N HPV Vaccine N Duration of Flow (days) 3 Current Control Method Hysterectom y Age at First Child 20 Are cycles usually normal N Date of Last Colonoscopy 04/06/2020 Frequency of Cycle (Q days) 14 Sexually Active? Y Menses Monthly Y Date of DEXA bone scan Age of first menstrual cycle 13 Date of Last Pap Smear 09/23/2022 Sexual Problems? N LMP Approximate Desired Control Method Sterilizati on N Obstetrics History GPAL:G 3 P 3 0 0 3 Type Value Full Term 3 Living 3 Total 3 Past Encounters Encounter ID Performer Location Encounter Start Date Encounter Closed Date Diagnosis/Indication Diagnosis SNOMED-CT Code Diagnosis ICD10 Code Diagnosis IMO Codes Diagnosis Note [id number] AXEL [facility]chor[facility] [address] [address] 08/12/2022 11:33:09 08/12/2022 12:31:39 Gynecologic examination 00942540 Z01.419 Suggested Calcium with Vitamin D 1200-1500m g daily. Patient advised to get an annual flu shot in the fall and she could obtain at [facility] or [facility] take care clinic. Also to obtain TDap vaccinatio n if you have not had one in the last 10 years. Recommend yearly mammograms . Encouraged monthly self breast exams. Encourage safe sexual practices, to use condoms and limit partners if not already in a monogamous relationsh ip. Engage in daily exercise of low impact aerobic exercise 45-60 minutes 4-5 times weekly. Avoid tobacco and illicit drugs as well as using moderation with alcohol intake less than 1-2 8 oz beverages daily. This lifestyle behavior pattern will lead to less health conditions and longer life span. If BMI greater than 25 weight watchers or dietary consult advised. All questions have been answered. Patient appears to understand informatio n, but if you have any questions please call or respond to this email. Pap/hpv-se ntSTD Screen - sentGeneti c Screen discussedC olon Screen PCPDexa Screen PCPRoutine Labs PCP just ordered & results pendingMam mo -ordered Screening mammography 24 444466 Z12.31 Irregular intermenstrual bleeding 58156706 N92.1 PCP updated labs-pendi ngUS orderedSTD screen sent Reduced libido 8223265 R 68.82 Reduced desire, arousal, difficulty achieving orgasm.We discussed multiple options including R/B, most common SE's, and purpose of each product/th erapy including but not limited to: Addyi, Vyleesi, Wellbutrin , low dose Testim. Today she opts to trial Wellbutrin XL.Manager Interventional ed on medication R/B's, Most common side effects, & use. All questions were answered to patient satisfacti on. Counseled on r/b's, most common side effects of this therapy with instructio ns to stop medication with any significan t abnormal change in mood especially with thoughts of suicide/se lf-harm/lara rm to others. Understand ing verbalized .RTO x 4wk med checkStart low to try and avoid any neg se'sPrecau tions serotonin syndrome sx's [id number] Mathew Barron MD [facility] [address] [address] 08/14/2022 11:40:57 08/14/2022 12:49:14 Irregular periods 22350134 N92.6 [id number] [facility] [address] [address] 09/23/2022 11:51:21 09/23/2022 13:06:59 Specimen unsatisfactory for evaluation 559716516 R85.615 R/P pap sent Trying to give up smoking 549303488 Z72.0 R68.82 Doing well on Wellbutrin 150 XL daily but would like to increase to full 300mg daily as previously discussed. Has not smoked x 1wk.Feeljose g more positive in her mood.Neg suicidal ideations/ thoughts of self harm. Rx sentF/U x 8wks med check Time spent in visit is a total of 15 mins with at least 50% of visit consisting of counseling and review of plan of care. [id number] Mathew Barron MD [facility] [address] [address] 10/02/2022 11:40:44 10/03/2022 09:32:24 Uterine leiomyoma 96306242 D25.9 this patient is 41-year-ol d female with severe menorrhagi a. She has fibroid uterus. She has attempted to treat her symptoms medically and has failed. Patient would like definitive surgical treatment of her uterine fibroids and heavy vaginal bleeding. We talked about different surgical options. Talked about endometria l ablation. Talked about hysterecto my both roboticall y and laparoscop ically. We agreed to proceed laparoscop ic total hysterecto my bilateral salpingect jillian. Spent 40 minutes face-to-fa ce today. We made a decision perform surgery. More than 50% of the time together was counseling . [id number] Mathew Barron MD [facility] [address] [address] 10/21/2022 09:39:23 10/23/2022 10:22:52 [id number] Mathew Barron MD [facility] [address] [address] 11/26/2022 17:09:35 11/26/2022 17:40:56 Menorrhagia 502123333 N92.0 Abnormal u terine bleeding [id number] 9100 N93.9 this patient is a 42-year-ol d female with severe menorrhagi a abnormal uterine bleeding. We have agreed to perform total laparoscop ic hysterecto my bilateral salpingect jillian. She understand s the risks, benefits, and alternativ es. She has completed the informed consent process is ready to proceed [id number] Mathew Barron MD [facility] [address],[place] [address] 12/09/2022 11:40:36 12/09/2022 11:42:03 [id number] Mathew Barron MD [facility] [address],[place] [address] 12/10/2022 15:03:20 12/10/2022 16:21:01 Pain in pelvis 18940269 R10.2 Menopausal symptom 37151 002 N95.1 42-year-ol d female with menopausal symptoms. We talked about menopause in great detail. We spent over 20 minutes face-to-fa ce. More than 50% was counseling . Talked about treatment options. We talked about risk of hormone replacemen t therapy. We agreed to a trial of estradiol to see if her night sweats were secondary to hormones. We going to measure her hormones with laboratory evaluation . She is postop day 7. From hysterecto my. She has recovering well. [id number] Mathew Barron MD [facility] [address],[place] [address] 09/28/2023 13:49:22 09/29/2023 11:00:58 Obesity 588106884 E66.9 Hypertriglyceridemia 302 426486 E78.2 Hot sweats 040429324 R61 42-year-ol d female who presents for follow-up on menopausal symptoms. She was prescribed 2 mg of estrogen. Her labs were checked. Her labs turned out to be normal. She did not appear to be menopausal . She has been taking estrogen for a month. She noticed no difference in her hot flashes and night sweats. This is likely a medical issue. I informed her that she should see her primary care doctor about this. We agreed to repeat labs while she is on estrogen we talked about weight issues. We spent over 40 minutes face-to-fa ce. More than 50% was counseling . Much of this time was counseling on obesity and weight loss. We talked about obesity. We talked about diet and calories. We talked about exercise. We talked about medication s. We talked about resistance training. We talked about calorie counting. [id number] Mathew Barron MD [facility] [address] [address] 08/09/2024 14:49:03 08/09/2024 15:39:20 Menopausal symptom 58778256 N95.1 [id number] Reviewed self-help strategies (dietary changes/ex ercise/acu puncture/e tc.), herbal and other OTC therapies, hormonal options as well as other medication s used to treat common menopausal symptoms. Discussed the risks, benefits and potential side effects with use of HRT. Reviewed the risk implicatio ns with short term vs skilled nursing use. Will recheck labs today.Disc ussed rx for progestero ne 100 mg PO nightly to help with insomnia and night sweats.Jasmin lemus states that she would like to check labs first before deciding. Patient to RTO for WWE and to discuss labs. Fatigue 41540587 R53.83 [id number] Mathew Barron MD [facility] [address] [address] 08/17/2024 17:26:40 08/18/2024 12:06:30 Cobalamin deficiency 720610485 E53.8 42289 Discussed that vitamin B12 levels were low on recent labwork, which could be contributi ng to fatigue and brain fog.Rx sent for Vitamin B12 injections (1,000 mcg) weekly.Jasmin lemus to picker feeder vial at pharmacy and RTO for first injection. Will repeat labs in 12 weeks. Menopausal symptom 47614 002 N95.1 [id number] Discussed that estradiol and total testostero ne were elevated and progestero ne was decreased. Recommende d decreasing estradiol to 1 mg PO daily and adding progestero ne 100 mg PO nightly.R/ B/AEs of HRT reviewed thoroughly .Patient verbalizes understand ing and agreement to plan of care.RTO in 12 weeks for med check and repeat labs. Well woman health examination 461555753 Z01.419 [id number] Annual gynecologi cuca exam performed. Patient will come back in a year unless there are new symptoms. Suggest Calcium with Vitamin D if not eating in diet. Patient advised to get annual flu shot. Recommend yearly physicals and perform monthly breast exams. Genetic testing is available for patients with family history of cancer. Engage in safe sexual practices, use condoms. Encouraged to have daily exercise. Avoid tobacco and illicit drugs, moderation of alcohol. If BMI greater than 25 dietary consult advised. If you have any questions please call or email. mammogram- order given, pt to schedule Pap smear- d/c - hx hysterecto my for non-cancer ous indication sUSPSTF recommends against screening for cervical cancer in women older than 65yo, those who've had a hysterecto my for non-cancer indication s, & who have had adequate prior screening & are not otherwise at high risk for cervical cancer. STI testing - declined Vitamin D deficiency 347 30221 E55.9 53903 Discussed that vitamin D levels were low on recent labwork, which could be contributi ng to fatigue and brain fog.Rx sent for Vitamin D2 1,250 mcg PO once weekly.Papa lua repeat labs in 12 weeks. [id number] RAMYA MAHARAJ, FRANK [facility] [address] [address] 11/17/2024 09:19:39 11/17/2024 10:02:13 Menopausal symptom 89551076 N95.1 [id number] Patient reports significan t improvemen t in hot flashes, night sweats, and fatigue since taking estradiol 1 mg PO daily and progestero ne 100 mg PO nightly.Wi ll recheck levels today as testostero ne and estradiol were elevated and progestero ne was decreased at last visit 08/09/24RTO for WWE, or sooner if any questions or concerns Fatigue 00927778 R53.83 [id number] Will recheck Vitamin B12 and vitamin D levels since taking supplement s Health Concerns Section Related Observation LastModified by Organization Detai ls LastModified Time None Recorded Concern Status LastModified by Organization Details LastModified Time None Recorded Advance Directives Directive N: Payers Insurance Date Sequence Insurance Name Policy Number Policy Bosch Covered Member ID Bosch Member ID Guarantor Name 11/21/2024 1 [place] [id number] Ramya Lucio [id number] Ramya Valdes 09/26/2022 PAYMENT PLAN Ramya Valdes 08/09/2024 1 [place] [id number] Ramya Tobi Valdes [id number] Ramya Lucio Notes Date Note Type Note Provider Name and Address Organization Details Recorded Time 4 text/html 42-year-old female who presents for follow-up on menopausal symptoms. She was prescribed 2 mg of estrogen. Her labs were checked. Her labs turned out to be normal. She did not appear to be menopausal. She has been taking estrogen for a month. She noticed no difference in her hot flashes and night sweats. This is likely a medical issue. I informed her that she should see her primary care doctor about this. We agreed to repeat labs while she is on estrogen we talked about weight issues. We spent over 40 minutes lwbt-tq-gosc. More than 50% was counseling. Much of this time was counseling on obesity and weight loss. We talked about obesity. We talked about diet and calories. We talked about exercise. We talked about medications. We talked about resistance training. We talked about calorie counting. Mathew Barron MD [address], [place], [address], [facility] 09/28/2023 23:42:44 5 text/html 43 y/o female presents for hormone problem.Patient states that she had a laproscopic hysterectomy with salpingectomy 12/03/22.Patient was prescribed estradiol 2 mg PO daily shortly after surgery due to onset of hot flashes and night sweats. Patient states that FSH/LH/estradiol were normal (pre-menopausal) in 2022 and 2023.Patient requests that her hormones be checked again due to insomnia and night sweats. Patient states that she takes trazadone and still wakes up at night. Patient reports increase in fatigue and feeling off. RAMYA MAHARAJ NP [address], [place], [address], [facility] 08/09/2024 15:29:00 5 text/html Annual GYNReported by PatientGenitourinary symptomsFor urinary symptoms, patient reportsno hematuriaandno incontinence. For vulva, patient reportsno genital lesion. For vagina, patient reportsnormal vaginal discharge.Breast symptomsFor breast, patient reportsno breast pain,no breast lump, andno nipple discharge.Endocrine symptomsFor menopausal symptoms, patient reportshot flashesandinsomnia due to night sweatsbut reportsnormal vaginal lubrication. For sexual complaints, patient reportsno sexual complaints,no pain during intercourse, andnormal libido.Psychological symptomsFor psychological symptoms, patient reportsno depression,no anxiety, andno pmdd.Preventative measuresFor preventive measures, patient reportsencourage self breast examination,encourage regular exercise,encourage no tobacco use, andencourage regular mammograms starting age 40. Patient presents for annual well woman exam and to review recent lab work. Hx of laproscopic hysterectomy with salpingectomy 12/03/22. Recently was seen in the office for worsening vasomotor symptoms and fatigue despite taking estradiol 2 mg PO daily. RAMYA MAHARAJ NP [address], [place], [address], [facility] 08/18/2024 10:01:23 5 text/html 43 y/o female presents for medication check. RAMYA MAHARAJ NP [address], [place], [address], [facility] 11/17/2024 10:00:40 OBGyn Episode Ob Episode Information Episode Created Date Number of Fetuses Patient Bloodtype Patient rh Status Prepregnancy Weight lbs Domestic Partner Domestic Partner Phone Father Name Pharmacy Technician Program Director Status 08/13/19 23 1 CLOSED Fetus Data First Name Last Name Admitted to NICU Weight (g) Sex Living Outcome Pediatric Complications Fetus ID Race Codes Race Delivery Type 3345.24 1 F Full Term Vaginal Delivery Ehsan Calculation Initial Ehsan Date Initial Exam Date Initial Exam Provider Initial Ultrasound Date Last Menstrual Period Date Ultra Sound Weeks Gestation 0 Eighteen To Twenty Week Ehsan Update Ultra Sound Date Fundal Height At Umbil Quickening Date Ultra Sound Latest Weeks Gestation Final Ehsan Confirmed By Final Ehsan Confirmed Date Final Ehsan Date Ultra Sound Latest Days Gestation 0 0 Menstrual History Last Menstrual Date Menses Monthly On Bcp Conception Prior Menses Frequency Hcg Plus Date Menarche Onset Age Delivery Information Delivery Date Delivery Type Labor Anesthesia Weeks Gestation Incision Type Labor Labor Length Hrs Delivered By Post Complications Tubal Sterilization Discharge Date Comments 5 Discharge Information Feeding Method Contraceptive Method Maternal HG B and HCT Levels Ob Episode Information Episode Created Date Number of Fetuses Patient Bloodtype Patient rh Status Prepregnancy Weight lbs Domestic Partner Domestic Partner Phone Father Name Pharmacy Technician Program Director Status 08/13/19 23 1 CLOSED Fetus Data First Name Last Name Admitted to NICU Weight (g) Sex Living Outcome Pediatric Complications Fetus ID Race Codes Race Delivery Type 3713.55 7704 M Full Term [id number] Vaginal Delivery Ehsan Calculation Initial Ehsan Date Initial Exam Date Initial Exam Provider Initial Ultrasound Date Last Menstrual Period Date Ultra Sound Weeks Gestation 0 Eighteen To Twenty Week Ehsan Update Ultra Sound Date Fundal Height At Umbil Quickening Date Ultra Sound Latest Weeks Gestation Final Ehsan Confirmed By Final Ehsan Confirmed Date Final Ehsan Date Ultra Sound Latest Days Gestation 0 0 Menstrual History Last Menstrual Date Menses Monthly On Bcp Conception Prior Menses Frequency Hcg Plus Date Menarche Onset Age Delivery Information Delivery Date Delivery Type Labor Anesthesia Weeks Gestation Incision Type Labor Labor Length Hrs Delivered By Post Complications Tubal Sterilization Discharge Date Comments 2 Discharge Information Feeding Method Contraceptive Method Maternal HG B and HCT Levels Ob Episode Information Episode Created Date Number of Fetuses Patient Bloodtype Patient rh Status Prepregnancy Weight lbs Domestic Partner Domestic Partner Phone Father Name Pharmacy Technician Program Director Status 08/13/19 23 1 CLOSED Fetus Data First Name Last Name Admitted to NICU Weight (g) Sex Living Outcome Pediatric Complications Fetus ID Race Codes Race Delivery Type 3345.24 1 M Full Term [id number] Vaginal Delivery Ehsan Calculation Initial Ehsan Date Initial Exam Date Initial Exam Provider Initial Ultrasound Date Last Menstrual Period Date Ultra Sound Weeks Gestation 0 Eighteen To Twenty Week Ehsan Update Ultra Sound Date Fundal Height At Umbil Quickening Date Ultra Sound Latest Weeks Gestation Final Ehsan Confirmed By Final Ehsan Confirmed Date Final Ehsan Date Ultra Sound Latest Days Gestation 0 0 Menstrual History Last Menstrual Date Menses Monthly On Bcp Conception Prior Menses Frequency Hcg Plus Date Menarche Onset Age Delivery Information Delivery Date Delivery Type Labor Anesthesia Weeks Gestation Incision Type Labor Labor Length Hrs Delivered By Post Complications Tubal Sterilization Discharge Date Comments 6 Discharge Information Feeding Method Contraceptive Method Maternal HG B and HCT Levels
[2025-03-08 10:29] LABS: Beta HCG Quantitative < 2.39 mIU/ML
[2025-03-08 11:50] VITALS: BP 117/71; PULSE 86; RESP 15; O2SAT 100
== END 2025-03-08 11:51 | disposition home or self-care (01) ==
PROVIDERS: Emergency Provider Nurse Practitioner Family; PCP Nurse Practitioner Family
DX: K52.9 Noninfective gastroenteritis and colitis, unspecified (principal); K21.9 Gastro-esophageal reflux disease without esophagitis; F41.9 Anxiety disorder, unspecified; F32.A Depression, unspecified; Z87.891 Personal history of nicotine dependence; Z90.49 Acquired absence of other specified parts of digestive tract; Z90.710 Acquired absence of both cervix and uterus; Z90.79 Acquired absence of other genital organ(s); Z79.890 Hormone replacement therapy
CPT/HCPCS: 36415; 74177; 80053; 81001; 83690; 84702; 93005; 96361; 96374; 96375; 99284; J1200; J2765; J7030; Q9967